=== PATIENT | female | born 1990 | race Caucasian/White ===

== ENCOUNTER 2016-05-13 17:38 | Emergency (ER) | payer BC, MEDICAID ==
[2016-05-13 18:59] VITALS: BP 115/60
--- NOTE | 2016-05-13 19:44 | UC ---
Abdominal Pain Female HPI - HPI Summary HPI Summary: ABOUT 2 EPISODES OF LOOSE STOOLS PER DAY FOR PAST 3 DAYS. THIS MORNING ATE A TUNA SUB AND AN HOUR LATER STARTED VOMITING. HAS VOMITED 9 TIMES SINCE ONSET. NO FEVER. NO ABDOMINAL PAIN OR CRAMPING. DENIES ANY URINARY SX. HAS DM AND STATES HER SUGARS ARE USUALLY AROUND 200. POC GLUCOSE HERE 198. - History of Current Complaint Chief Complaint: UCGI Stated Complaint: VOMITING Time Seen by Provider: 05/13/16 19:30 Hx Obtained From: Patient Hx Last Menstrual Period: Mar 2016 Onset/Duration: Gradual Onset, Lasting Days, Still Present Timing: Constant Severity Initially: Moderate Severity Currently: Moderate Pain Intensity: 0 Pain Scale Used: 0-10 Numeric Aggravating Factor(s): Food Associated Signs and Symptoms: Positive: Decreased Appetite, Nausea, Vomiting, Diarrhea. Negative: Fever, Dizzy, Back Pain, Constipation, Blood in Stool, Urinary Symptoms Allergies/Adverse Reactions: Allergies Allergy/AdvReac Type Severity Reaction Status Date / Time Sulfamethoxazole Allergy Severe Swelling Verified 05/13/16 19:00 w/Trimethoprim [From Bactrim] Askew-Josefa Flavor AdvReac Intermediate Vomiting Verified 05/13/16 19:00 Metformin AdvReac Intermediate Vomiting Verified 05/13/16 19:00 Sulfa Drugs AdvReac Unknown See Comment Verified 05/13/16 19:00 Losartan [From Cozaar] AdvReac Vomiting Verified 05/13/16 19:00 Home Medications: Home Medications ARIPiprazole TAB* [Abilify TAB*] 05/13/16 [History] Diazepam TAB(*) [Valium TAB(*)] 05/13/16 [History] Liraglutide [Victoza] 05/13/16 [History] Norethindrone/Eth Est NF [Junel (NF)] 05/13/16 [History] OXcarbazepine TAB(*) [Trileptal TAB(*)] 05/13/16 [History] Oxistat 05/13/16 [History] Oxycodone HCl [Oxycodone HCl 100 mg/5 ml] 05/13/16 [History] PMH/Surg Hx/FS Hx/Imm Hx Endocrine History Of: Reports: Diabetes Denies: Thyroid Disease Cardiovascular History Of: Denies: Cardiac Disorders, Hypertension, Pacemaker/ICD Respiratory History Of: Reports: Asthma Denies: COPD GI/ History Of: Denies: Gastroesophageal Reflux, Ulcer, Renal Disease Neurological History Of: Denies: CVA, Dementia, Seizures Psychological History Of: Reports: Anxiety, Depression, Schizophrenia Other History Of: Negative For: Anticoagulant Therapy - Surgical History Surgical History: Yes Surgery Procedure, Year, and Place: foot surgeries - Family History Known Family History: Positive: Hypertension, Diabetes Family History: No FHx of psychotic disorders. FHx of schizophrenia. FHx of mood disorders. FHx of bipolar disorders. Fhx of anxiety disorders. FHx of Depression. Fhx of alcohol abuse - Social History Alcohol Use: Occasionally Alcohol Amount: [id number] Substance Use Type: None, Prescribed Smoking Status (MU): Never Smoked Tobacco Have You Smoked in the Last Year: No Household Exposure Type: Cigarettes Review of Systems Constitutional: Fatigue Respiratory: Negative Cardiovascular: Negative Gastrointestinal: Vomiting, Diarrhea Genitourinary: Negative All Other Systems Reviewed And Are Negative: Yes Physical Exam Triage Information Reviewed: Yes Appearance: Well-Appearing, No Pain Distress, Well-Nourished, Obese Vital Signs: Initial Vital Signs Temp 96.9 F 05/13/16 18:54 Pulse 137 05/13/16 18:54 Resp 18 05/13/16 18:54 BP 115/60 05/13/16 18:54 Pulse Ox 99 05/13/16 18:54 Vital Signs Reviewed: Yes Eyes: Positive: Conjunctiva Clear ENT: Positive: Hearing grossly normal Neck: Positive: Supple Respiratory Exam: Normal Cardiovascular: Positive: Tachycardia Abdomen Description: Positive: Nontender, Soft. Negative: CVA Tenderness (R), CVA Tenderness (L), Distended, Guarding Bowel Sounds: Positive: Present Musculoskeletal: Positive: No Edema Neurological: Positive: Alert Psychological: Positive: Age Appropriate Behavior Skin: Negative: rashes Diagnostics - Laboratory Diagnostic Studies Completed/Ordered: POC GLUCOSE - 198. URINE DIP SP. GR. 1.035, 3+ LEUKS Re-Evaluation - Re-Evaluation First Eval Re-Evaluation Time: 21:00 - PT FEELS BETTER. READY TO GO HOME AFTER 600ML NS, 4MG ZOFRAN Change: Improved Abd Pain Female Course/Dx - Differential Dx/Diagnosis Provider Diagnoses: 1. UTI. 2. ACUTE NAUSEA/VOMITING. 3. HYPERGLYCEMIA Discharge - Discharge Plan Condition: Stable Disposition: HOME Prescriptions: Ciprofloxacin [Cipro] 5 ml PO BID #50 ml Ondansetron ODT TAB* [Zofran Odt TAB*] 4 mg PO Q6H PRN #20 tab.odt PRN Reason: Nausea/Vomiting Patient Education Materials: Urinary Tract Infection in Women (ED), Acute Nausea and Vomiting (ED), Diabetic Hyperglycemia (ED) Referrals: Marshall Simons MD [Primary Care Provider] - 2 Weeks Additional Instructions: YOUR UNCONTROLLED DIABETES PUTS YOU AT INCREASED RISK OF INFECTION. THIS MAY EXPLAIN WHY YOU HAVE FREQUENT URINARY INFECTIONS. WE WILL ALSO SEND YOUR URINE TO DETERMINE IF YOU HAVE AN ATYPICAL CAUSE OF YOUR INFECTION. START YOUR ABX TOMORROW. FOLLOW-UP WITH YOUR PCP TO DISCUSS TIGHTER GLYCEMIC CONTROL.
[2016-05-13] MEDS ORDERED: Ondansetron ODT TAB* 4 MG PO ONE ×2 (19:48→21:03)
[2016-05-13] MEDS ORDERED: NS 0.9% 1000 ML* 1,000 ML IV SCH (20:00)
[2016-05-16 15:53] LABS: Ureaplasma Source URINE; Ureaplasma parvum PCR Positive; Ureaplasma urealyticum PCR Negative
== END 2016-05-13 21:25 | disposition home or self-care (01) ==
LOC: UCEAST 17:38
DX: N39.0 Urinary tract infection, site not specified (principal); R11.2 Nausea with vomiting, unspecified; E11.65 Type 2 diabetes mellitus with hyperglycemia; Z32.02 Encounter for pregnancy test, result negative; Z88.2 Allergy status to sulfonamides; Z88.8 Allergy status to other drugs, medicaments and biological substances; Z77.22 Contact with and (suspected) exposure to environmental tobacco smoke (acute) (chronic)
CPT/HCPCS: 81002; 81025; 87077; 87086; 87798; 96360; 99213; A9270-GY; G0463

== ENCOUNTER 2016-11-15 19:06 | Emergency (ER) | payer BC, MEDICAID ==
[2016-11-15 19:12] VITALS: BP 120/84
== END 2016-11-15 20:41 | disposition left against medical advice (07) ==
LOC: ED 19:06
DX: F19.10 Other psychoactive substance abuse, uncomplicated (principal); Z53.21 Procedure and treatment not carried out due to patient leaving prior to being seen by health care provider
CPT/HCPCS: 99282

== ENCOUNTER 2017-05-04 16:05 | Emergency (ER) | payer BC, OTHER, MEDICAID ==
[2017-05-04 16:18] VITALS: BP 131/89
--- NOTE | 2017-05-04 16:40 | UC ---
Head Injury HPI - HPI Summary HPI Summary: Pt presents with head injury sustained earlier this afternoon. She tells me that about 1.5 hours ago she was leaving her house and slipped on "black ice". Her feet went out from underneath her and she landed on her buttocks - her head flung back and she hit the back of it on the ground. Unwitnessed. Says she was "pretty dazed" for around 30 seconds, but did not black out or lose consciousness. She was able to get up and drive to her Urgent care without difficulties. Currently she has some dizziness and mild pain in the back of her head. She also complains of sinus pain/pressure/congestion for the last 4 days. Denies fever, chills, SOB, chest pain, abdominal pain, n/v/d/c, vision changes, headache, or weakness. - History Of Current Complaint Chief Complaint: UCHeadInjury Stated Complaint: HEAD INJURY, AND DIZZINESS Time Seen by Provider: 05/04/17 16:32 Hx Obtained From: Patient Hx Last Menstrual Period: Mar 2016 ?: No Onset/Duration: Sudden Onset Severity Currently: Moderate Severity Initially: Moderate Pain Intensity: 6 Pain Scale Used: 0-10 Numeric - Allergies/Home Medications Allergies/Adverse Reactions: Allergies Allergy/AdvReac Type Severity Reaction Status Date / Time losartan [From Cozaar] Allergy Vomiting Verified 05/04/17 16:20 pregabalin [From Lyrica] Allergy Vomiting Verified 05/04/17 16:20 Sulfa (Sulfonamide Allergy Vomiting Verified 05/04/17 16:20 Antibiotics) sulfamethoxazole Allergy Vomiting Verified 05/04/17 16:20 [From Bactrim] trimethoprim [From Bactrim] Allergy Vomiting Verified 05/04/17 16:20 Home Medications: Home Medications Asenapine(NF) [Saphris(NF)] 5 mg PO DAILY 05/04/17 [History Confirmed 05/04/17] Doxepin HCl 75 mg PO BEDTIME 05/04/17 [History Confirmed 05/04/17] FLUoxetine* [Prozac*] 05/04/17 [History] Prazosin CAP* [Minipress CAP*] 2 mg PO DAILY 05/04/17 [History Confirmed ] busPIRone TAB* [Buspar TAB*] 10 mg PO BID 05/04/17 [History Confirmed 05/04/17] hydrOXYzine pamoate [Vistaril] 50 mg IM MONTHLY 05/04/17 [History Confirmed 03/09] PMH/Surg Hx/FS Hx/Imm Hx Previously Healthy: Yes Psychological History: Anxiety, Depression, Bipolar Disorder, Schizophrenia Other History Of: Negative For: Anticoagulant Therapy - Surgical History Surgical History: Yes Surgery Procedure, Year, and Place: foot surgeries - Family History Known Family History: Positive: None, Hypertension, Diabetes Family History: No FHx of psychotic disorders. FHx of schizophrenia. FHx of mood disorders. FHx of bipolar disorders. Fhx of anxiety disorders. FHx of Depression. Fhx of alcohol abuse - Social History Alcohol Use: None Alcohol Amount: [id number] Substance Use Type: None Smoking Status (MU): Light Every Day Tobacco Smoker Have You Smoked in the Last Year: No Household Exposure Type: Cigarettes Review of Systems Constitutional: Negative Skin: Negative Eyes: Negative ENT: Sinus Congestion, Sinus Pain/Tenderness Respiratory: Negative Cardiovascular: Negative Gastrointestinal: Negative Neurovascular: Negative Musculoskeletal: Negative Neurological: Other - Dizziness Psychological: Negative All Other Systems Reviewed And Are Negative: Yes Physical Exam Triage Information Reviewed: Yes Appearance: Well-Appearing, No Pain Distress, Well-Nourished Vital Signs: Initial Vital Signs Temp 99 F 05/04/17 16:12 Pulse 114 05/04/17 16:12 Resp 20 05/04/17 16:12 BP 131/89 05/04/17 16:12 Pulse Ox 100 05/04/17 16:12 Vital Signs Reviewed: Yes Eyes: Positive: Conjunctiva Clear, Other: - EOMI. PERRLA. Negative: Conjunctiva Inflamed, Discharge ENT: Positive: Hearing grossly normal, Pharynx normal, Nasal congestion, Nasal drainage, TMs normal, Sinus tenderness, Uvula midline. Negative: Pharyngeal erythema, TM bulging, TM dull, TM red, Tonsillar swelling, Tonsillar exudate, Hoarse voice Neck: Positive: Supple, No Lymphadenopathy, Other: - NTTP. FROM. Respiratory: Positive: Lungs clear, Normal breath sounds, No respiratory distress, No accessory muscle use Cardiovascular: Positive: RRR, No Murmur, Pulses Normal Musculoskeletal: Positive: Strength Intact - B/L UEs and LEs, ROM Intact - B/L UEs and LEs, No Edema Neurological: Positive: Alert, Other: - A&Ox3. 3 word recall, remote, recent memory, ability to follow 2-step directions, and attention intact. CN II XII grossly intact. Clvmhb-yi-pady are intact. Gait with normal base. Romberg: maintains balance, no pronator drift. Normal speech. No facial drooping. Psychological: Positive: Age Appropriate Behavior Skin: Positive: Other - No edema, abrasions, or ecchymosis at site of impact on head. No monique's sign.. Negative: rashes, significant lesion(s) Re-Evaluation - Re-Evaluation First Eval Re-Evaluation Time: 17:47 Change: Improved Comment: Still with mild dizziness. AAOx3. No new symptoms Head Injury Course/Dx - Course Course Of Treatment: Head CT: IMPRESSION: Normal CT of the brain. GCS 15. Sinusitis. Suspect contusion vs concussion due to recent fall. Advised rest, ice , and tylenol prn. Monitor for any red flag symptoms and go to ED if develops. - Differential Dx/Diagnosis Provider Diagnoses: Head trauma. Sinusitis. Dizziness Discharge - Discharge Plan Condition: Stable Disposition: HOME Prescriptions: Amoxicillin PO (*) [Amoxicillin 400 MG/5 ML SUSP*] 6 ml PO BID #120 ml Patient Education Materials: Sinusitis (ED), Concussion (ED), Head Injury (ED) Referrals: Marshall Simons MD [Primary Care Provider] - Additional Instructions: If you develop a fever, shortness of breath, chest pain, headache, increasing dizziness, vision changes, vomiting, new or worsening symptoms - please call your PCP or go to the ED. Your blood pressure was high at todays visit. Please see your primary provider within 4 weeks for recheck and re-evaluation.
[2017-05-04] MEDS ORDERED: Meclizine TAB* 12.5 MG PO ONE (17:20)
--- NOTE | 2017-05-04 17:41 | RAD ---
INDICATION: Dizziness, blurred vision and "small lump on head" after trauma to left side of head after a slip and fall injury COMPARISON: None. TECHNIQUE: Contiguous axial sections of the brain were obtained from the skull base to the vertex without contrast. FINDINGS: The ventricles, cisterns and sulci are within normal limits. The cole-white matter differentiation is adequately maintained and there is no sulcal effacement. No significant focal abnormality or mass effect is present. There is no evidence for intracranial hemorrhage. No significant focal osseous abnormality is present. The visualized portion of the paranasal sinuses appear clear. The mastoid air cells are well aerated bilaterally. IMPRESSION: Normal CT of the brain.
== END 2017-05-04 17:59 | disposition home or self-care (01) ==
LOC: UCEAST 16:05
DX: S09.90XA Unspecified injury of head, initial encounter (principal); W00.0XXA Fall on same level due to ice and snow, initial encounter; Y93.01 Activity, walking, marching and hiking; Y92.008 Other place in unspecified non-institutional (private) residence as the place of occurrence of the external cause; R42 Dizziness and giddiness; J32.9 Chronic sinusitis, unspecified; F41.9 Anxiety disorder, unspecified; F31.9 Bipolar disorder, unspecified; F20.9 Schizophrenia, unspecified; Z88.1 Allergy status to other antibiotic agents; Z88.2 Allergy status to sulfonamides; Z88.8 Allergy status to other drugs, medicaments and biological substances; F17.200 Nicotine dependence, unspecified, uncomplicated
CPT/HCPCS: 70450; 99212; A9270-GY; G0463

== ENCOUNTER 2017-08-14 06:48 | Emergency (ER) | payer BC, MEDICAID ==
[2017-08-14] MEDS ORDERED: Thiamine IV* 100 MG, Folic Acid IV* 1 MG, Multiple Vitamin IV ADULT* 10 ML in NS 0.9% 1... IV ONE (07:34)
[2017-08-14] MEDS ORDERED: Pantoprazole IV* 40 MG IV ONE (07:35)
--- NOTE | 2017-08-14 07:57 | ED ---
GI/ HPI - HPI Summary HPI Summary: 27-year-old female presents with chest and epigastric pain for the past couple days. She's been having epigastric pain. States has burning in her chest. has history of GERD. no SOB. no palpitations. She states she has not had appetite for a month and half. She states experiencing PTSD due to the of her friend. States she has been blaming herself and will not eat food for the past couple months. She has been drinking okay. She also admits to diarrhea. no blood in stool or dark tarry stool. admits to nausea and occasionally vomiting. admits to pain with urination. no abnormal vaginal discharge. She has not tried anything. She states the pain is worse when she tries to eat. No history of ulcers. No fevers. - History of Current Complaint Chief Complaint: EDGeneral Time Seen by Provider: 08/14/17 07:09 Stated Complaint: CHEST/ABD PAIN Hx Last Menstrual Period: Mar 2016 Pain Intensity: 8 - Allergy/Home Medications Allergies/Adverse Reactions: Allergies Allergy/AdvReac Type Severity Reaction Status Date / Time losartan [From Cozaar] Allergy Vomiting Verified 05/04/17 16:20 pregabalin [From Lyrica] Allergy Vomiting Verified 05/04/17 16:20 Sulfa (Sulfonamide Allergy Vomiting Verified 05/04/17 16:20 Antibiotics) sulfamethoxazole Allergy Vomiting Verified 05/04/17 16:20 [From Bactrim] trimethoprim [From Bactrim] Allergy Vomiting Verified 05/04/17 16:20 PMH/Surg Hx/FS Hx/Imm Hx Endocrine/Hematology History: Reports: Hx Diabetes - TYPE 2, W/ INSULIN Denies: Hx Anticoagulant Therapy, Hx Thyroid Disease, Other Endocrine/ Hematological Disorders Cardiovascular History: Denies: Hx Hypertension, Hx Pacemaker/ICD, Other Cardiovascular Problems/ Disorders Respiratory History: Reports: Hx Asthma Denies: Hx Chronic Obstructive Pulmonary Disease (COPD), Other Respiratory Problems/Disorders GI History: Denies: Hx Ulcer, Other GI Disorders History: Denies: Hx Renal Disease, Other Problems/Disorders Musculoskeletal History: Reports: Other Musculoskeletal History - NUMBNESS/ TINGLING/PAIN IN EXTREMITIES Sensory History: Reports: Hx Contacts or Glasses Denies: Other Sensory Impairments Opthamlomology History: Reports: Hx Contacts or Glasses Denies: Other Sensory Impairments Neurological History: Denies: Hx Dementia, Hx Seizures, Other Neuro Impairments/Disorders Psychiatric History: Reports: Hx Anxiety, Hx Attention Deficit Hyperactivity Disorder, Hx Depression, Hx Post Traumatic Stress Disorder, Hx Inpatient Treatment, Hx Community Mental Health Tx, Hx Schizophrenia Denies: Hx Eating Disorder, Hx of Violent Episodes Against Others, Hx Substance Abuse, Other Psychiatric Issues/Disorders - Surgical History Surgery Procedure, Year, and Place: foot surgeries Infectious Disease History: No Infectious Disease History: Denies: Hx Clostridium Difficile, Hx Hepatitis, Hx Human Immunodeficiency Virus (HIV), Hx of Known/Suspected MRSA, Hx Shingles, Hx Tuberculosis, Hx Known/ Suspected VRE, Hx Known/Suspected VRSA, History Other Infectious Disease, Traveled Outside the [place] in Last 30 Days - Family History Known Family History: Positive: None, Hypertension, Diabetes Family History: No FHx of psychotic disorders. FHx of schizophrenia. FHx of mood disorders. FHx of bipolar disorders. Fhx of anxiety disorders. FHx of Depression. Fhx of alcohol abuse - Social History Alcohol Use: None Alcohol Amount: [id number] Substance Use Type: Reports: None Hx Tobacco Use: No Smoking Status (MU): Light Every Day Tobacco Smoker Have You Smoked in the Last Year: No Review of Systems Negative: Fever Positive: Chest Pain Negative: Shortness Of Breath, Cough Positive: Abdominal Pain, Vomiting, Diarrhea, Nausea All Other Systems Reviewed And Are Negative: Yes Physical Exam Triage Information Reviewed: Yes Vital Signs On Initial Exam: Initial Vitals Temp Pulse Resp BP Pulse Ox 97 F 97 20 153/105 100 08/14/17 06:49 08/14/17 06:49 08/14/17 06:49 08/14/17 06:49 08/14/17 06:49 Vital Signs Reviewed: Yes Appearance: Positive: Well-Appearing Skin: Positive: Warm, Dry Head/Face: Positive: Normal Head/Face Inspection Eyes: Positive: Normal, Conjunctiva Clear ENT: Positive: Pharynx normal Respiratory/Lung Sounds: Positive: Clear to Auscultation, Breath Sounds Present Cardiovascular: Positive: Normal, RRR Abdomen Description: Positive: Soft, Other: - tenderness epigastrium Bowel Sounds: Positive: Present Musculoskeletal: Positive: Normal Neurological: Positive: Normal Psychiatric: Positive: Normal Diagnostics - Vital Signs Vital Signs Temp Pulse Resp BP Pulse Ox 08/14/17 07:06 97 143/97 99 08/14/17 07:05 99 99 08/14/17 06:49 97 F 97 20 153/105 100 - Laboratory Result Diagrams: 08/14/17 07:58 08/14/17 07:58 Lab Statement: Any lab studies that have been ordered have been reviewed, and results considered in the medical decision making process. - Radiology chest Xray Interpretation: No Acute Changes Radiology Interpretation Completed By: Radiologist - Ultrasound No standard instances Ultrasound Interpretation: No Acute Changes Ultrasound Interpretation Completed By: Radiologist - EKG No standard instances Cardiac Rate: NL EKG Rhythm: Sinus Rhythm ST Segment: Normal EKG Interpretation: sinus rhythm, no ST elevation EKG Comparison: No Significant Change GIGU Course/Dx - Course Assessment/Plan: 27-year-old female presents with chest and epigastric pain for the past couple days. She's been having epigastric pain. States has burning in her chest. has history of GERD. no SOB. no palpitations. She states she has not had appetite for a month and half. She states experiencing PTSD due to the of her friend. States she has been blaming herself and will not eat food for the past couple months. She has been drinking okay. She also admits to diarrhea. no blood in stool or dark tarry stool. admits to nausea and occasionally vomiting. admits to pain with urination. no abnormal vaginal discharge. She has not tried anything. She states the pain is worse when she tries to eat. No history of ulcers. No fevers. On exam has reproducible chest pain. Tenderness epigastric. Chest x-ray normal. EKG normal. Gallbladder ultrasound normal. Prescribe Protonix and feeling better. As within normal limits. Urine shows UTI. We'll prescribe Augmentin for such. Patient will only take liquid medication. Patient has follow up with psychiatry today about not eating. Patient understands agrees with plan. - Diagnoses Differential Diagnoses - Female: Gall Bladder Disease, Gastritis, Urinary Tract Infection, Vomiting Provider Diagnoses: Chest pain, Epigastric pain, UTI (urinary tract infection) Discharge - Sign-Out/Discharge Documenting (check all that apply): Discharge/Admit/Transfer - Discharge Plan Condition: Good Disposition: HOME Prescriptions: Amoxicillin/Clavulanate SUSP* [Augmentin SUSP*] 600 mg PO BID #1 bottle Lansoprazole SOLUTAB* [Prevacid SOLUTAB*] 15 mg PO DAILY #14 tab.odt Patient Education Materials: Urinary Tract Infection in Women (ED), Epigastric Pain (ED) Referrals: Marshall Simons MD [Primary Care Provider] - Additional Instructions: Take lansoprazole once a day either morning or night, do not take any other medication before or after an hour of taking such Try to eat small snacks throughout the day drink plenty of fluids Take augmentin 5ml twice a day for 5 days, first dose given in ED Follow up with primary within 5 days Return to ED if develop any new or worsening symptoms - Billing Disposition and Condition Condition: GOOD Disposition: HOME
[2017-08-14 08:24] LABS: ABS Basophils 0 10^3/ul (0-0.2); ABS Eosinophils 0.1 10^3/ul (0-0.6); ABS Lymphocytes 1.4 10^3/ul (1.0-4.8); ABS Monocytes 0.4 10^3/ul (0-0.8); ABS Neutrophils 5.6 10^3/ul (1.5-7.7); ABS Nucleated RBC 0 10^3/ul; Eosinophil % 1.4 % (0-6); Hematocrit 37 % (35-47); Hemoglobin 12.4 g/dl (12.0-16.0); Lymphocyte % 18.6 % (25-47); Mean Corpuscular HGB Conc 33 g/dl (31-36); Mean Corpuscular Hemoglobin 27 pg (27-31); Mean Corpuscular Volume 82 fL (80-97); Mean Platelet Volume 6.9 um3 (7.4-10.4); Nucleated Red Blood Cells % 0; Platelet Count 289 10^3/ul (150-450); Red Blood Count 4.56 10^6/ul (4.0-5.4); Red Cell Distribution Width 12 % (10.5-15); White Blood Count 7.6 10^3/ul (3.5-10.8)
--- NOTE | 2017-08-14 08:29 | RAD ---
HISTORY: Chest pain COMPARISONS: January 29, 2016 VIEWS: 4: Frontal dual-energy and lateral views of the chest. FINDINGS: CARDIOMEDIASTINAL SILHOUETTE: The cardiomediastinal silhouette is normal. LISA: The lisa are normal. PLEURA: The costophrenic angles are sharp. No pleural abnormalities are noted. LUNG PARENCHYMA: The lungs are clear. ABDOMEN: The upper abdomen is clear. There is no subphrenic gas. BONES AND SOFT TISSUES: No bone or soft tissue abnormalities are noted. OTHER: None. IMPRESSION: NO ACTIVE CARDIOPULMONARY DISEASE.
--- NOTE | 2017-08-14 08:47 | RAD ---
Indication: Epigastric pain. Real-time sonography of the right upper quadrant was performed. The liver is enlarged measuring 21.6 cm in length. There are no focal lesions or intrahepatic duct dilatation is noted. The gallbladder demonstrates no gallstones, pericholecystic fluid or wall thickening. The common duct measures 1.8 mm. The right kidney measures 12.0 x 4.3 x 6.4 cm with no hydronephrosis. The pancreas demonstrates no mass or pancreatic duct dilatation. Aorta and inferior vena cava are unremarkable. IMPRESSION: HEPATOMEGALY. NO EVIDENCE OF CHOLELITHIASIS OR BILIARY DUCT DILATATION IS NOTED.
[2017-08-14] MEDS ORDERED: Potassium Chloride LIQUID* 20 MEQ PACKET PO ONE (09:00)
[2017-08-14 09:26] LABS: Urine Appearance Cloudy; Urine Blood 2+ (Negative); Urine Color Yellow; Urine Ketones Negative (Negative); Urine Protein Negative (Negative); Urine Specific Gravity 1.017 (1.010-1.030); Urine Urobilinogen Negative (Negative)
[2017-08-14] MEDS ORDERED: Amoxicillin/Clavulanate SUSP* 400 MG/5 ML BTL PO ONE (09:43)
[2017-08-14 10:03] VITALS: BP 142/96
== END 2017-08-14 10:17 | disposition home or self-care (01) ==
LOC: ED 06:48
DX: R07.9 Chest pain, unspecified (principal); R10.13 Epigastric pain; N39.0 Urinary tract infection, site not specified; Z72.0 Tobacco use; E11.9 Type 2 diabetes mellitus without complications; Z79.4 Long term (current) use of insulin; Z88.2 Allergy status to sulfonamides; K21.9 Gastro-esophageal reflux disease without esophagitis
CPT/HCPCS: 36415; 71046; 76705; 80053; 81003; 81015; 83690; 83735; 84484; 85025; 85379; 86141; 87086; 93005; 96360; 96374; 99284; A9270-GY; J3411

== ENCOUNTER 2017-10-30 14:45 | Emergency (ER) | payer BC, MEDICAID ==
[2017-10-30] MEDS ORDERED: Ondansetron INJ* 2 MG/ML VIAL IV ONE (16:30)
[2017-10-30] MEDS ORDERED: NS 0.9% 1000 ML* 1,000 ML IV ONE (16:30)
--- OUTSIDE RECORDS SUMMARY | 2017-10-30 16:41 | XMS REPORT ---
:1990 External Reference #:[id number] Author Organization [facility] Address [address] [place] [address] [place] [address] Phone [phone] Care Team Providers Name Role Phone Marshall Simons MD Primary Care Physician Unavailable Payers Type Date Identification Numbers Payment Provider Subscriber Commercial Policy Number: [id number] [facility] Soy [employer]gett PayID: [id number] [address] [place] [address] [facility] Policy Number: [id number] Medicaid Risa Leggett PayID: [id number] [address] [place] [address] Problems Description No Information Family History Date Family Member(s) Problem(s) Comments General Heart Disease General Hypertension General Diabetes Father Diabetes Mother Diabetes Social History Type Date Description Comments Cigarette Use Former Cigarette Smoker ETOH Use Denies alcohol use Recreational Drug Use Denies Drug Use Smoking Light tobacco smoker (10 or fewer cigarettes/day) Allergies, Adverse Reactions, Alerts Date Description Reaction Status Severity Comments 10/22/2017 Metformin active 10/22/2017 Cozaar active 10/22/2017 Sulfa active 10/22/2017 Askew Allergenic Extract active Medications Medication Date Status Form Strength Qnty SIG Indications Ordering Provider Tresiba / Active Solution 200Unit/ML As directed Unknown Flextouch 0000 Pen-Inject Albuterol / Active Nebulizer (2.5mg/3ML 1 vial via Unknown Sulfate 0000 ) 0.083% nebulizer 4 times daily as needed Pulmicort / Active Suspension 0.5mg/2ML add 1 Unknown 0000 respule to saline (pt will supply own) as directed and irrigate sinuses twice daily Victoza / Active Solution 1.2mg As directed Unknown 0000 Pen-Inject Suboxone / Active Film 24mg every day Unknown Nicolle 28 / Active Tablets 3-0.03mg 1 tab Unknown 0000 everyday Ibuprofen / Active Capsules 200mg as needed Unknown 0000 Infants 01/13/ Hx Suspension 50mg/1.25M 500ml 15 ml tid Mike Ibuprofen 2010 - prn pain Jack, 10/20/ Raulito 2017 Gabapentin / Hx Capsules 100mg 1 po tid Unknown 0000 - 2017 Buspirone / Hx Tablets 10mg 1 by mouth Unknown HCL 0000 - twice a day 2017 June Fe / Hx Tablets 1-20mg-mcg 1 by mouth Unknown 04/11 0000 - every day 2017 Vital Signs Date Vital Result Comment 10/22/2017 Height 66 inches 5'6" Weight 217.00 lb Heart Rate 86 /min BP Systolic 138 mmHg BP Diastolic 102 mmHg BMI (Body Mass Index) 35.0 kg/m2 Results Description No Information Procedures Description No Information Encounters Type Date Location Provider CPT E/M Dx Office Visit 10/22/2017 [facility] John Post, [address] E11.40 8:30a [facility] Office Visit 01/13/2011 [facility] Mike Santiago M.D. 29775 923.00 10:00a Of [place] 923.21 Plan of Care Future Appointment(s):02/22/2018 8:15 am - John Post M.D. at [facility]10/22/2017 - John Post M.D.E11.40 Type 2 diabetes mellitus with diabetic neuropathy, unspFollow up:Follow up in 4 months Please send copies to: 1. Dr. Marshall Simons 2. Dr. Renata Brand at [facility] 3. Dr. Julio Zhao in [place]
--- NOTE | 2017-10-30 16:50 | ED ---
Abdominal Pain/Female - HPI Summary HPI Summary: This is scribe Andrew Aragon documenting for attending Dr. Reddy Cabezas This patient is a 27 year old F presenting to [facility] accompanied by her friend with a chief complaint of weakness since 10/27/17. Pt refuses to eat or drink as a way of punishing (her)self because she is angry at things that are happening in (her) life. Pt now wants to eat but cannot due to N/V. She endorses drinking only 8-10 oz a day, eating only 600-700 calories/day for the past month or month and a half. Pt endorses 11 times/day diarrhea; clear without blood or mucous. Pt recently finished an Abx regimen 2 days ago. Pt endorses abd pain, cramping, flank pain over kidneys. Pt notes that she is able to urinate and urinates a normal volume. LKMP 6 weeks ago get it every 7 weeks due to PCOS. PMHx DM II, ITP, schizophrenia, PCOS, depression, IBS. Pt uses Victoza. Pt smokes 3-4 cigarettes a day, no drinking or substance abuse. FHx HLD, DM, HTN, CAD, breast cancer. I, Dr. Blakely personally performed the services described in this documentation as scribed in my presence and it is both accurate and complete. - History of Current Complaint Chief Complaint: EDWeakness Stated Complaint: NOT EATING/WEAK Time Seen by Provider: 10/30/17 16:20 Hx Obtained From: Patient Hx Last Menstrual Period: 10/16/17 ?: No Onset/Duration: Gradual Onset, Lasting Days, Still Present Timing: Constant Severity Initially: Moderate Severity Currently: Moderate Pain Intensity: 7 Pain Scale Used: 0-10 Numeric Location: Diffuse, Flank Radiates: Yes Radiates to: Flank Character: Cramping Aggravating Factor(s): Food Alleviating Factor(s): Nothing Associated Signs and Symptoms: Positive: Back Pain, Decreased Appetite, Nausea, Vomiting, Diarrhea. Negative: Fever, Blood in Stool Allergies/Adverse Reactions: Allergies Allergy/AdvReac Type Severity Reaction Status Date / Time losartan [From Cozaar] Allergy Vomiting Verified 10/30/17 15:06 metformin Allergy Rash Verified 10/30/17 15:06 pregabalin [From Lyrica] Allergy Vomiting Verified 10/30/17 15:06 Sulfa (Sulfonamide Allergy Vomiting Verified 10/30/17 15:06 Antibiotics) sulfamethoxazole Allergy Vomiting Verified 10/30/17 15:06 [From Bactrim] trimethoprim [From Bactrim] Allergy Vomiting Verified 10/30/17 15:06 PMH/Surg Hx/FS Hx/Imm Hx Endocrine/Hematology History: Reports: Hx Blood Disorders - ITP, Hx Diabetes - TYPE 2, W/ INSULIN Denies: Hx Anticoagulant Therapy, Hx Thyroid Disease, Other Endocrine/ Hematological Disorders Cardiovascular History: Denies: Hx Hypertension, Hx Pacemaker/ICD, Other Cardiovascular Problems/ Disorders Respiratory History: Reports: Hx Asthma Denies: Hx Chronic Obstructive Pulmonary Disease (COPD), Other Respiratory Problems/Disorders GI History: Reports: Hx Irritable Bowel Denies: Hx Ulcer, Other GI Disorders History: Reports: Other Problems/Disorders - PCOS Denies: Hx Renal Disease Musculoskeletal History: Reports: Other Musculoskeletal History - NUMBNESS/ TINGLING/PAIN IN EXTREMITIES Sensory History: Reports: Hx Contacts or Glasses Denies: Hx Legally Blind, Hx Deafness, Other Sensory Impairments Opthamlomology History: Reports: Hx Contacts or Glasses Denies: Hx Legally Blind, Other Sensory Impairments EENT History: Denies: Hx Deafness Neurological History: Denies: Hx Dementia, Hx Seizures, Other Neuro Impairments/Disorders Psychiatric History: Reports: Hx Anxiety, Hx Attention Deficit Hyperactivity Disorder, Hx Depression, Hx Post Traumatic Stress Disorder, Hx Inpatient Treatment, Hx Community Mental Health Tx, Hx Schizophrenia Denies: Hx Eating Disorder, Hx of Violent Episodes Against Others, Hx Substance Abuse, Other Psychiatric Issues/Disorders - Surgical History Surgery Procedure, Year, and Place: foot surgeries Infectious Disease History: No Infectious Disease History: Denies: Hx Clostridium Difficile, Hx Hepatitis, Hx Human Immunodeficiency Virus (HIV), Hx of Known/Suspected MRSA, Hx Shingles, Hx Tuberculosis, Hx Known/ Suspected VRE, Hx Known/Suspected VRSA, History Other Infectious Disease, Traveled Outside the [place] in Last 30 Days - Family History Known Family History: Positive: Hypertension, Diabetes Family History: FHx of schizophrenia. FHx of mood disorders. FHx of bipolar disorders. Fhx of anxiety disorders. FHx of Depression. Fhx of alcohol abuse - Social History Lives: Dormitory/Roommates Alcohol Use: None Alcohol Amount: [id number] Substance Use Type: Reports: None Hx Tobacco Use: Yes Smoking Status (MU): Light Every Day Tobacco Smoker - 3-4 cigarettes/day Type: Cigarettes Have You Smoked in the Last Year: No Review of Systems Negative: Fever Positive: Abdominal Pain, Vomiting, Diarrhea, Nausea. Negative: Other - hematochezia Positive: flank pain Positive: Weakness All Other Systems Reviewed And Are Negative: Yes Physical Exam - Summary Physical Exam Summary: VITAL SIGNS: Reviewed. GENERAL: Patient is a well-developed and nourished female who is lying comfortable in the stretcher. Patient is not in any acute respiratory distress. HEAD AND FACE: No signs of trauma. No ecchymosis, hematomas or skull depressions. No sinus tenderness. EYES: PERRLA, EOMI x 2, No injected conjunctiva, no nystagmus. EARS: Hearing grossly intact. Ear canals and tympanic membranes are within normal limits. MOUTH: Dry mouth. NECK: Supple, trachea is midline, no adenopathy, no JVD, no carotid bruit, no c- spine tenderness, neck with full ROM. CHEST: Symmetric, no tenderness at palpation LUNGS: Clear to auscultation bilaterally. No wheezing or crackles. CVS: Regular rate and rhythm, S1 and S2 present, no murmurs or gallops appreciated. ABDOMEN: Soft, non-tender. No signs of distention. No rebound no guarding, and no masses palpated. Bowel sounds are normal. EXTREMITIES: FROM in all major joints, no edema, no cyanosis or clubbing. NEURO: Alert and oriented x 3. No acute neurological deficits. Speech is normal and follows commands. SKIN: Dry and warm Triage Information Reviewed: Yes Vital Signs On Initial Exam: Initial Vitals Temp Pulse Resp BP Pulse Ox 98.5 F 107 20 132/91 97 10/30/17 15:00 10/30/17 15:00 10/30/17 15:00 10/30/17 15:00 10/30/17 15:00 Vital Signs Reviewed: Yes Diagnostics - Vital Signs Vital Signs Temp Pulse Resp BP Pulse Ox 10/30/17 16:14 104 126/81 100 10/30/17 15:00 98.5 F 107 20 132/91 97 - Laboratory Result Diagrams: 10/30/17 17:09 10/30/17 17:09 Lab Statement: Any lab studies that have been ordered have been reviewed, and results considered in the medical decision making process. - Radiology Abd XR Xray Interpretation: No Acute Changes Radiology Interpretation Completed By: Radiologist - No abdominal pelvic pathologic process evident. Dr. Blakely has reviewed this report. Re-Evaluation - Re-Evaluation First Eval Re-Evaluation Time: 18:54 Change: Improved Comment: Pt is much better, eating and drinking without N/V. Abdominal Pain Fem Course/Dx - Course Course Of Treatment: This patient is a 27-year-old female who presents to the emergency department with a chief complaint of having nausea and vomiting and decreased appetite. Patient also reports that she is having watery diarrhea. Test results without any significant abnormality except for glucose of 139, alkaline phosphatase of 108 CRP of 15. Urinalysis negative for UTI. abdomen x- ray shows no abdominal pelvic pathology process evident. In the ED course the case was given IV fluids for rehydration and Zofran for nausea vomiting. After these medications the patient feels better, she is eating and drinking without any nausea or vomiting. I discussed all the findings and test results with the patient. Patient was instructed to return to the emergency room immediately if any of the symptoms return or worsens. Plan of care was discussed with the patient and understands and agrees. All questions were answered at patient satisfaction. There were no further complaints or concerns. Lung exam before discharge: CTA B/L. Good air exchange. No wheezing or crackles heard. CVS: S1 and S2 present. No murmurs appreciated. Patient is alert and oriented x 3. Patient is hemodynamically stable. Patient will be discharged home with follow up PCP in the next 2-3 days - Diagnoses Provider Diagnoses: Weakness, Nausea & vomiting Discharge - Sign-Out/Discharge Documenting (check all that apply): Patient Departure - discharge - Discharge Plan Condition: Stable Disposition: HOME Prescriptions: Ondansetron ODT TAB* [Zofran 4 MG Odt TAB*] 4 mg PO Q8H PRN #10 tab.odt PRN Reason: Nausea Patient Education Materials: Acute Nausea and Vomiting (ED), Weakness (ED) Referrals: Marshall Simons MD [Primary Care Provider] - Additional Instructions: Return to the emergency department for any new or worsening symptoms. Attestations User Type: Provider - I, Dr. Blakely personally performed the services described in this documentation as scribed in my presence and it is both accurate and complete.
[2017-10-30 17:20] LABS: ABS Basophils 0.1 10^3/ul (0-0.2); ABS Eosinophils 0 10^3/ul (0-0.6); ABS Lymphocytes 1.6 10^3/ul (1.0-4.8); ABS Monocytes 0.5 10^3/ul (0-0.8); ABS Neutrophils 7.7 10^3/ul (1.5-7.7); ABS Nucleated RBC 0 10^3/ul; Eosinophil % 0.3 % (0-6); Hematocrit 43 % (35-47); Hemoglobin 14.7 g/dl (12.0-16.0); Lymphocyte % 16.4 % (25-47); Mean Corpuscular HGB Conc 34 g/dl (31-36); Mean Corpuscular Hemoglobin 27 pg (27-31); Mean Corpuscular Volume 81 fL (80-97); Mean Platelet Volume 7.3 um3 (7.4-10.4); Nucleated Red Blood Cells % 0.1; Platelet Count 309 10^3/ul (150-450); Red Blood Count 5.38 10^6/ul (4.00-5.40); Red Cell Distribution Width 13 % (10.5-15); White Blood Count 9.9 10^3/ul (3.5-10.8)
[2017-10-30 17:32] LABS: Urine Appearance Clear; Urine Blood Negative (Negative); Urine Color Yellow; Urine Ketones Negative (Negative); Urine Protein Negative (Negative); Urine Specific Gravity 1.016 (1.010-1.030); Urine Urobilinogen Negative (Negative)
[2017-10-30 17:41] LABS: EGFR Non-African American 73.1 (>60)
--- NOTE | 2017-10-30 17:50 | RAD ---
Indication: Nausea, vomiting, diarrhea. Comparison: August 14, 2017 RIGHT upper quadrant ultrasound. Technique: Supine and upright views of the abdomen. Report: Negative for free air beneath the diaphragm. Normal bowel gas pattern. Small volume of stool present in the RIGHT colon. Negative for suspicious calcifications or mass effect. Unremarkable soft tissue contours. Clear lung bases. IMPRESSION: #. No abdominal pelvic pathologic process evident.
[2017-10-30 19:57] VITALS: BP 148/102
== END 2017-10-30 19:59 | disposition home or self-care (01) ==
LOC: ED 14:45
DX: R53.1 Weakness (principal); R11.2 Nausea with vomiting, unspecified; F17.210 Nicotine dependence, cigarettes, uncomplicated; E78.5 Hyperlipidemia, unspecified; E11.9 Type 2 diabetes mellitus without complications; F20.9 Schizophrenia, unspecified; K58.9 Irritable bowel syndrome, unspecified; F32.9 Major depressive disorder, single episode, unspecified; D69.3 Immune thrombocytopenic purpura; Z79.4 Long term (current) use of insulin
CPT/HCPCS: 36415; 74019; 80053; 81003; 82150; 83605; 83690; 83735; 85025; 86140; 96361; 96374; 99283; J2405

== ENCOUNTER 2018-04-07 12:16 | Inpatient (IN) | payer BC, OTHER, MEDICAID ==
[2018-04-07] MEDS ORDERED: Nicotine Inhaler* 10 MG AMP INH PRN (12:22)
--- OUTSIDE RECORDS SUMMARY | 2018-04-07 12:25 | XMS REPORT | Continuity of Care Document ---
:1990 External Reference #:[id number] Author Name Christel Barraza PA-C Address [address] [place] [address] Care Team Providers Name Role Phone Abdirashid Brenner MD Care Team Information Senior It Specialist Unavailable Marshall Simons M.D. Primary Care Physician Unavailable Payers Type Date Identification Numbers Payment Provider Subscriber Effective: Policy Number: [id number] [employer] Bella Betsey 2018 Health Plan PayID: [id number] [address] [place] [address] Policy Number: [id number] Medicaid/I Risa Leggett Group Name: 1 2 Insurance Primary PayID: [id number] [address] [place] [address] Advance Directives Description No Information Available Problems Date Description Provider Status Onset: 04/24/2011 Sensorineural hearing loss Hammad Foster MD Active Family History Date Family Member(s) Problem(s) Comments General Allergies General Asthma General Diabetes General Heart Attack General Heart Disease General Thyroid Disease Social History Type Date Description Comments Sex Unknown Occupation challenge Tobacco Use Start: Unknown Current Cigarette Smoker 1-5 Cigarettes Daily Tobacco Use Start: Unknown Never Smoked Cigars Tobacco Use Start: Unknown Never Smoked A Pipe Smokeless Tobacco Never Used Smokeless Tobacco ETOH Use Denies alcohol use Tobacco Use Start: Unknown Patient is a current smoker, smokes every day Smoking Status Reviewed: 03/10/18 Patient is a current smoker, smokes every day Allergies, Adverse Reactions, Alerts Date Description Reaction Status Severity Comments 04/23/2011 Cherries Active 04/23/2011 Metformin Active 02/19/2018 sulfa Active Medications Medication Date Status Form Strength Qnty SIG Indications Ordering Provider Mupirocin Active Cream 2% 30gm apply to Hammad Richards both nasal obdulia Alberto MD twice a day for 21 days Prozac 0 Active Capsules 20mg as directed Unknown 000 Drospirenone- Active Tablets 3-0.02mg 1 tab daily Unknown Ethinyl 000 Estradiol Ambien Active Tablets 10mg 1 by mouth Unknown 000 as needed at bedtime Victoza Active Solution 18mg/3ML as directed Unknown 000 Pen-Inject Zyrtec Active Capsules 10mg 1 by mouth Unknown Allergy 000 every night at bedtime Elocon Hx Cream 0.1% 15gm apply to Hammad Harper - dry areas E. Cristian, of ears 018 twice daily for 10 days. Abilify 0 Hx Unknown 000 - 018 Cozaar 0 Hx Unknown 000 - 018 Effexor XR 0 Hx Unknown 000 - 018 Seroquel 0 Hx Unknown 000 - 018 Ritalin 00/0 Hx Unknown 000 - 018 Cogentin 0 Hx Solution Unknown 000 - 018 Haldol /0 Hx Unknown 000 - 018 Prevacid 0 Hx Unknown 000 - 018 Synthroid 00/0 Hx Unknown 000 - 018 Immunizations Description No Information Available Vital Signs Date Vital Result Comment 02/19/2018 9:38am Weight 207.00 lb Weight 93.895 kg Height 66.5 inches 5'6.50" Height in cm's 168.9 cm BMI (Body Mass Index) 32.9 kg/m2 04/23/2011 2:46pm Weight 287.00 lb Weight 130.183 kg Height 66.50 inches 5'6.50" Height in cm's 168.9 cm BMI (Body Mass Index) 45.6 kg/m2 Results Description No Information Available Procedures Date Code Description Status 05/14/2011 54308 Oscillating Tracking Test W/Recor Completed 05/14/2011 67515 Optokinetic Nystagmus Test Bidir Completed 05/14/2011 25967 Caloric Vestibular - Recorded Completed 05/14/2011 54254 Positional Nystagmus - Recorded Completed 05/14/2011 38900 Spontaneous Nystagmus - Recorded Completed 04/23/2011 20088 Tympanometry Completed 04/23/2011 01315 Comprehensive Audiogram Completed Encounters Type Date Location Provider Dx Diagnosis Office Visit 03/10/2018 [place] Hair Wilde31.0 Chronic rhinitis 9:15a 03/23/07 PA-C Office Visit 02/19/2018 [place] Hammad Rice J31.0 Chronic rhinitis 9:45a 03/23/07 MD Cristian Office Visit 04/23/2011 [place] Hammad Rice 389.10 Hearing Loss, 2:00p 03/23/07 MD Cristian Sensorineural/Unsp ecified 388.31 Tinnitus, Subjective 386.10 Vertigo / Unspecified Plan of Treatment No Information Available
--- NOTE | 2018-04-07 12:28 | ED ---
Psychiatric Complaint - HPI Summary HPI Summary: A 27 y/o female brought in by ambulance presents to the ED c/o hearing voices and increased HI. As per EMS, patient increased her doses of her medication, however, she started hearing voices and has increased HI. Patient does not have any SI, however, the voices are getting severe. EMS noted that the patient extremely cooperative and nice. According to the patient, she would like to talk to mental health. Patient is standing in the room, however, is cooperative and answers all ER MD questions. Patient stated that she has a history of DM, but no HBP. Patient takes Victoza for her DM. PMHx of foot surgery for her warts in the 2nd grade. Patient is allergic to several medications. Patient's DM is well controlled. Patient does not like needles. Patient requested a Xanax (1 mg) as she usually takes it twice a day and would like one now because she is scared. Patient also requested some food because she is hungry. Patient reports no other symptoms or pain at this time. Home Medications Medication Instructions Recorded Confirmed Type Liraglutide [Victoza 3-Pato] 1.8 mg DAILY 05/13/16 05/04/17 History Norethindrone/Eth Est 1.08/19NF 1 tab PO DAILY 05/13/16 05/04/17 History [Junel .08/19 (NF)] Insulin Degludec [Tresiba 38 unit SC DAILY 07/16/16 05/04/17 History Flextouch U-100] ARIPiprazole TAB* [Abilify 2 MG 2 mg PO DAILY 09/18/16 05/04/17 History TAB*] Amoxicillin PO (*) [Amoxicillin 6 ml PO BID #120 ml 05/04/17 Rx 400 MG/5 ML SUSP*] Asenapine(NF) [Saphris(NF)] 5 mg PO DAILY 05/04/17 05/04/17 History Doxepin HCl 75 mg PO BEDTIME 05/04/17 05/04/17 History FLUoxetine* [Prozac*] 05/04/17 History Prazosin CAP* [Minipress CAP*] 2 mg PO DAILY 05/04/17 05/04/17 History busPIRone TAB* [Buspar TAB*] 10 mg PO BID 02/12/18 02/12/18 History hydrOXYzine pamoate [Vistaril] 50 mg IM MONTHLY 05/04/17 05/04/17 History Amoxicillin/Clavulanate SUSP* 600 mg PO BID #1 bottle 08/14/17 Rx [Augmentin SUSP*] Lansoprazole SOLUTAB* [Prevacid 15 mg PO DAILY #14 tab.odt 08/14/17 Rx SOLUTAB*] Ondansetron ODT TAB* [Zofran 4 MG 4 mg PO Q8H PRN #10 tab.odt 10/30/17 Rx Odt TAB*] - History Of Current Complaint Time Seen by Provider: 04/07/18 12:18 Hx Obtained From: Patient, EMS - GAVE SUMMARY Hx Last Menstrual Period: 10/16/17 Onset/Duration: Sudden Onset, Still Present Timing: Constant Severity Currently: None Character: Fearful Aggravating Factor(s): Nothing Alleviating Factor(s): Nothing Associated Signs And Symptoms: Positive: Negative Related History: Positive For: Prior Psychiatric Issues Has Homicidal: Reports: Thoughts - Allergies/Home Medications Allergies/Adverse Reactions: Allergies Allergy/AdvReac Type Severity Reaction Status Date / Time losartan [From Cozaar] Allergy Vomiting Verified 04/07/18 12:30 metformin Allergy Rash Verified 04/07/18 12:30 pregabalin [From Lyrica] Allergy Vomiting Verified 04/07/18 12:30 Sulfa (Sulfonamide Allergy Vomiting Verified 04/07/18 12:30 Antibiotics) sulfamethoxazole Allergy Vomiting Verified 04/07/18 12:30 [From Bactrim] trimethoprim [From Bactrim] Allergy Vomiting Verified 04/07/18 12:30 Home Medications: Home Medications ALPRAZolam [Alprazolam] 1 mg PO BID PRN 04/07/18 [History Confirmed 04/07/18] Aripiprazole Maintena (NF) [Abilify Maintena (NF)] 400 mg IM Q28D 04/07/18 [ History Confirmed 04/07/18] Asenapine(NF) [Saphris(NF)] 5 mg SL BEDTIME 04/07/18 [History Confirmed 04/07/18 ] Asenapine(NF) [Saphris(NF)] 10 mg SL BEDTIME 04/07/18 [History Confirmed ] Doxepin (NF) 75 mg PO BEDTIME 04/07/18 [History Confirmed 04/07/18] Fluoxetine LIQ* 40 mg PO DAILY 04/07/18 [History Confirmed 04/07/18] Naltrexone INJ [Vivitrol INJ] 380 mg IM MONTHLY 04/07/18 [History Confirmed ] Naltrexone TAB* 50 mg PO DAILY 04/07/18 [History Confirmed 04/07/18] Propranolol Hcl 20mg/5ml 10 mg PO BID 04/07/18 [History Confirmed 04/07/18] Zolpidem TAB* [Ambien TAB*] 10 mg PO BEDTIME PRN 04/07/18 [History Confirmed ] buPROPion SR TAB* [Wellbutrin SR TAB*] 150 mg PO BID 04/07/18 [History Confirmed 04/07/18] buPROPion TAB* [Wellbutrin TAB*] 100 mg PO QAM 04/07/18 [History Confirmed 04/07] busPIRone TAB* [Buspar TAB*] 10 mg PO BID 04/07/18 [History Confirmed 04/07/18] PMH/Surg Hx/FS Hx/Imm Hx Endocrine/Hematology History: Reports: Hx Blood Disorders - ITP, Hx Diabetes - TYPE 2, W/ INSULIN Denies: Hx Anticoagulant Therapy, Hx Thyroid Disease, Other Endocrine/ Hematological Disorders Cardiovascular History: Denies: Hx Hypertension, Hx Pacemaker/ICD, Other Cardiovascular Problems/ Disorders Respiratory History: Reports: Hx Asthma Denies: Hx Chronic Obstructive Pulmonary Disease (COPD), Other Respiratory Problems/Disorders GI History: Reports: Hx Irritable Bowel Denies: Hx Ulcer, Other GI Disorders History: Reports: Other Problems/Disorders - PCOS Denies: Hx Renal Disease Musculoskeletal History: Reports: Other Musculoskeletal History - NUMBNESS/ TINGLING/PAIN IN EXTREMITIES Sensory History: Reports: Hx Contacts or Glasses Denies: Hx Legally Blind, Hx Deafness, Other Sensory Impairments Opthamlomology History: Reports: Hx Contacts or Glasses Denies: Hx Legally Blind, Other Sensory Impairments Neurological History: Denies: Hx Dementia, Hx Seizures, Other Neuro Impairments/Disorders Psychiatric History: Reports: Hx Anxiety, Hx Attention Deficit Hyperactivity Disorder, Hx Depression, Hx Post Traumatic Stress Disorder, Hx Inpatient Treatment, Hx Community Mental Health Tx, Hx Schizophrenia Denies: Hx Eating Disorder, Hx of Violent Episodes Against Others, Hx Substance Abuse, Other Psychiatric Issues/Disorders - Surgical History Surgery Procedure, Year, and Place: foot surgeries Infectious Disease History: Denies: Hx Clostridium Difficile, Hx Hepatitis, Hx Human Immunodeficiency Virus (HIV), Hx of Known/Suspected MRSA, Hx Shingles, Hx Tuberculosis, Hx Known/ Suspected VRE, Hx Known/Suspected VRSA, History Other Infectious Disease, Traveled Outside the [place] in Last 30 Days - Family History Known Family History: Positive: Hypertension, Diabetes Family History: FHx of schizophrenia. FHx of mood disorders. FHx of bipolar disorders. Fhx of anxiety disorders. FHx of Depression. Fhx of alcohol abuse - Social History Alcohol Use: None Alcohol Amount: [id number] Substance Use Type: Reports: None Hx Tobacco Use: Yes Smoking Status (MU): Light Every Day Tobacco Smoker - 3-4 cigarettes/day Type: Cigarettes Have You Smoked in the Last Year: No Review of Systems Negative: Fever Psychological: Other - POSITIVE: HI AND HEARING VOICES; NEGATIVE: SI All Other Systems Reviewed And Are Negative: Yes Physical Exam - Summary Physical Exam Summary: Appearance: Well-appearing, Well-nourished, standing in the ED room Skin: Warm, dry, no obvious rash Eyes: sclera anicteric, no conjunctival pallor ENT: mucous membranes moist Neck: deferred Respiratory: No signs of respiratory distress Cardiovascular: Appears well perfused, pulses are nml Abdomen: deferred Musculoskeletal: Moving all 4 extremities without obvious discomfort Neurological: Awake and alert, mentation is normal, speech is fluent and appropriate Psychiatric: Patient's voice is flat, relatively free of any emotion, does not appear to be hallucinating and did not express any hallucinations Triage Information Reviewed: Yes Vital Signs Reviewed: Yes Diagnostics - Laboratory Result Diagrams: 04/07/18 11:52 04/07/18 11:52 Lab Statement: Any lab studies that have been ordered have been reviewed, and results considered in the medical decision making process. Course/Dx - Course Course Of Treatment: A 27 y/o female brought in by ambulance presents to the ED c/o hearing voices and increased HI. As per EMS, patient increased her doses of her medication, however, she started hearing voices and has increased HI. Patient does not have any SI, however, the voices are getting severe. EMS noted that the patient extremely cooperative and nice. Physical examination findings significant for patient's voice is flat, relatively free of any emotion, does not appear to be hallucinating and did not express any hallucinations. Hematology, Chemistry, urinalysis, and toxicology screens were done. Lab studies notable only for signs of urinary tract infection. On discussion with the patient, she has a history of UTIs, and tends not to have symptoms with them , which makes it difficult to say whether she should be treated with antibiotics for this. I would recommend starting her on Keflex 500 mg 3 times a day for the next 3 days. The antibiotic can be stopped if the culture is negative. In the ED course, the patient received Xanax, Keflex, and Nicotine. After [facility], patient care was discussed with Dr. Yimi Fontenot who accepts patient for admission (via involuntary admission). Patient will be admitted with a diagnosis of schizophrenic disorder. Patient is agreeable with this plan. - Differential Dx/Clinical Impression Provider Diagnosis: Schizophrenic disorder - Physician Notifications Discussed Care Of Patient With: Yimi Fontenot Time Discussed With Above Provider: 15:12 Instructed by Provider To: Other - ACCEPTS PATIENT FOR ADMISSION VIA INVOLUNTARY ADMISSION. Discharge - Sign-Out/Discharge Documenting (check all that apply): Patient Departure - ADMIT, Sign-Out Patient - MICHAEL Signing out patient TO: Yimi Fontenot Receiving patient FROM: Emmanuel Hull - Discharge Plan Condition: Stable Disposition: PSYCHIATRIC FACILITY[place] [place] Referrals: Marshall Simons MD [Primary Care Provider] - - Billing Disposition and Condition Condition: STABLE Disposition: Psychiatric Facility [facility] [place] - Attestation Statements Document Initiated by William: Yes Documenting Scribe: Alejo Kaur Provider For Whom William is Documenting (Include Credential): Emmanuel Hull MD Scribrobina Attestation: Alejo Ghosh, scribed for Emmanuel Hull MD on 04/07/18 at 1526. Scribe Documentation Reviewed: Yes Provider Attestation: The documentation as recorded by the Alejo segura accurately reflects the service I personally performed and the decisions made by me, Emmanuel Hull MD Status of Scribe Document: Viewed
[2018-04-07] MEDS ORDERED: ALPRAZolam TAB* 0.5 MG PO SCH (12:30)
[2018-04-07 12:55] LABS: ABS Basophils 0 10^3/ul (0-0.2); ABS Eosinophils 0.1 10^3/ul (0-0.6); ABS Lymphocytes 1.3 10^3/ul (1.0-4.8); ABS Monocytes 0.3 10^3/ul (0-0.8); ABS Neutrophils 4.4 10^3/ul (1.5-7.7); ABS Nucleated RBC 0 10^3/ul; Eosinophil % 1.3 %; Hematocrit 40 % (35-47); Lymphocyte % 21.8 %; Mean Corpuscular HGB Conc 33 g/dl (31-36); Mean Corpuscular Hemoglobin 27 pg (27-31); Mean Corpuscular Volume 84 fL (80-97); Mean Platelet Volume 6.7 fL (7.4-10.4); Nucleated Red Blood Cells % 0.2; Platelet Count 275 10^3/ul (150-450); Red Blood Count 4.75 10^6/ul (4.00-5.40); Red Cell Distribution Width 12 % (10.5-15); White Blood Count 6.2 10^3/ul (3.5-10.8)
[2018-04-07] MEDS ORDERED: Mouth Piece, Nicotine* 1 EACH CARTRIDGE INH ONE (13:00)
[2018-04-07 13:15] LABS: ALT 5 U/L (7-52); AST 10 U/L (13-39); Albumin/Globulin Ratio 1.7 (1-3); Alkaline Phosphatase 82 U/L (34-104); Anion Gap 6 mmol/L (2-11); BUN/Creatinine Ratio 14.7 (8-20); Blood Urea Nitrogen 11 mg/dL (6-24); CO2 Carbon Dioxide 28 mmol/L (22-32); Chloride 102 mmol/L (101-111); EGFR Non-African American 91.4 (>60); Globulin 2.3 g/dL (2-4); Glucose 151 mg/dL (70-100); Sodium 136 mmol/L (135-145); Total Protein 6.3 g/dL (6.4-8.9)
[2018-04-07 13:21] LABS: Alcohol < 10 mg/dL (<10); HCG Pregnancy < 0.60 mIU/mL; Salicylate < 2.50 mg/dL (<30)
[2018-04-07 13:22] LABS: Urine Appearance Cloudy; Urine Bacteria 1+ (Absent); Urine Bilirubin Negative (Negative); Urine Blood Negative (Negative); Urine Color Yellow; Urine Glucose 1+(50 mg/dL) (Negative); Urine Ketones Negative (Negative); Urine Nitrite Negative (Negative); Urine Protein Negative (Negative); Urine Red Blood Cell 3+(>10/hpf) (Absent); Urine Specific Gravity 1.026 (1.010-1.030); Urine Urobilinogen Negative (Negative); Urine White Blood Cell 3+(>20/hpf) (Absent)
[2018-04-07 13:24] LABS: Barbiturates Urine Screen None Detected (None Detect); Benzodiazepine Urine Screen Presumptive Positive (None Detect); Urine Cannabinoids Screen None Detected (None Detect)
[2018-04-07 13:35] LABS: TSH (Thyroid Stimulating Horm) 3.06 mcIU/mL (0.34-5.60)
[2018-04-07] MEDS ORDERED: ALPRAZolam TAB* 0.25 MG PO ONE (15:15)
[2018-04-07] MEDS ORDERED: Acetaminophen TAB* 325 MG PO PRN (15:20)
[2018-04-07] MEDS ORDERED: Al Hydrox/Mg Hydrox/Simet LIQ* 30 ML UDC PO PRN (15:20)
[2018-04-07] MEDS: cloNIDine TAB* 0.1 MG PO PRN (21:08)
[2018-04-07] MEDS: Fluoxetine LIQ* 20 MG/5 ML UDC PO SCH (21:08)
[2018-04-07] MEDS: busPIRone TAB* 10 MG PO SCH (21:11)
[2018-04-07] MEDS: Cephalexin SUSP* 250 MG/5 ML ORAL.SUSP 100 ML BTL PO SCH (21:14)
[2018-04-07] MEDS: buPROPion SR TAB.SR* 150 MG PO SCH (21:14)
[2018-04-07] MEDS ORDERED: Zolpidem TAB* 10 MG ONE (21:38)
[2018-04-07] MEDS ORDERED: Zolpidem TAB* 10 MG PO ONE (22:00)
[2018-04-07] MEDS: PTO: Liraglutide (NF) 18 MG/3 ML SUBCUT SCH (22:43)
[2018-04-08] MEDS: Fluoxetine LIQ* 20 MG/5 ML UDC PO SCH ×2 (00:06→21:26)
[2018-04-08] MEDS: Cephalexin SUSP* 250 MG/5 ML ORAL.SUSP 100 ML BTL PO SCH ×5 (00:06→20:49)
[2018-04-08 08:13] LABS: HDL Cholesterol 66.8 mg/dL
[2018-04-08] MEDS: Naltrexone TAB* 50 MG TAB PO SCH (08:16)
[2018-04-08] MEDS: buPROPion SR TAB.SR* 150 MG PO SCH (08:18)
[2018-04-08] MEDS: DROSPIRENONE PO SCH (09:17)
[2018-04-08] MEDS: busPIRone TAB* 10 MG PO SCH ×2 (09:17→20:53)
[2018-04-08] MEDS: ETHINYL ESTRADIOL PO SCH (09:17)
[2018-04-08] MEDS ORDERED: LORazepam TAB(*) 1 MG PO SCH ×2 (11:00→14:00)
[2018-04-08] MEDS: cloNIDine TAB* 0.1 MG PO PRN (18:25)
--- NOTE | 2018-04-08 18:56 | HP ---
HISTORY AND PHYSICAL: DATE OF ADMISSION: 04/07/18 PROVIDER: Cecille Trevino NP in Psychiatry. SUPERVISING PHYSICIAN: Yimi Fontenot MD * (DICTATED BY CECILLE TREVINO NP) JUSTIFICATION FOR ADMISSION: The patient is in need of 24-hour supervision and care secondary to auditory hallucinations that compel her to hurt or kill her mother with a knife. CHIEF COMPLAINT: "The voices don't like my mom, but I like my mom. There are too many people here, they're giving me flashbacks." HISTORY OF PRESENT ILLNESS: The patient is a 27-year-old single white female with a history of schizophrenia, who arrives, brought in by ambulance after she threatened to stab her mother with a plastic knife because the voices were telling her to hurt her mom because her mom would not stop talking to her. Kelsey is very specific about what she wants from this hospitalization. She states that she is having flashbacks of her ex-girlfriend, Buffy's, . She states that the auditory hallucinations are problematic. She states in the 13 years since she has begun having those, she has never acted upon them with the exception of the plastic knife incident. She states she was not really going to stab her mom, she just wanted to scare her. She loves her mom and her dad and her grandmother and she does not really like the rest of the family. Kelsey has many specific requests including medications, respite from her family which her family also wants. She wants to be safe on 04/13/18, which is the 1-year anniversary of Buffy's . She wants to be out of the hospital on 04/15/18, which is her 28th birthday. She wants to celebrate that she is one and quarter years clean. She wants to be treated carefully around her food needs, which include a banana and cheese with every meal and a bottle of water because she believes the tap water is poisoned. She states she is due for a Maintena 400 mg injection on 04/11/18 and she does not want Thorazine or doxepin. Her sleep is poor without Ambien. She seems to feel sort of a vague sense of guilt about everything she has done with the notable exception of wanting to stab her mother. She is able to concentrate throughout our discussion. She ate 2 plates of pasta at lunch. She is not suicidal. PAST PSYCHIATRIC HISTORY: She has had previous admissions, but not in 6-1/2 years. She has been hospitalized here at [facility] on the adolescent side. She has seen Dr. Sylvain Wise at that time. Right now, she is seeing Dr. Renata Brand at the [facility]. She also sees Sandra Baker RN and Tena Dewitt as her health care specialist. She hears voices that tell her to stab her mother. She does not have access to weapons. She lives with her parents and they have removed all the knives from their apartment. She has taken a long list of psychiatric medications in the past. SUBSTANCE ABUSE HISTORY: She has been addicted to medication in the past. She currently sees a woman, also named Sandra at the [facility]. She does smoke cigarettes socially and thinks she may smoke up to 5 cigarettes a week. PAST MEDICAL HISTORY: Kelsey is obese. She has a history of bronchial asthma, polycystic ovarian syndrome, and warts on her lower extremities. MEDICATIONS: She is currently taking; 1. Abilify Maintena 400. 2. Abilify by mouth 2 mg. 3. Ambien 10 mg. 4. Xanax 1 mg b.i.d. She requires nicotine replacements. She cannot chew due to her dental work, so she needs an inhaler. ALLERGIES: She is allergic to METFORMIN, COZAAR, CHERRIES, SULFA, and BACTRIM. FAMILY HISTORY: Kelsey's father has a history of depressive disorder and he suffers from diabetes. SOCIAL HISTORY: Kelsey is the only child from an intact family. Dad works as a psychologist from [employer] in the [facility]. Mom used to be a temporary receptionist at [employer]. Kelsey is dependent on her parents and calls them at times during the day and at night when she is frightened. She is on social security disability. She lives in a 3 bedroom apartment with her parents. She is no longer employed. She graduated from high school and did some college, but without additional help she could not navigate college. She has romantically partnered with females. REVIEW OF SYSTEMS: The patient reports feeling fatigued due to not having been able to sleep due to lack of Ambien. She denies current shortness of breath, heat or cold intolerance, chest pain or abdominal pain. She denies neurological symptoms. She denies fevers or changes in weight. PHYSICAL EXAMINATION VITAL SIGNS: On 04/07/18 at 12:36, temperature was 97.6, pulse was 104, respirations 16, O2 sat on room air 100%, blood pressure 122/87. LABORATORY DATA: Largely within normal limits. Exceptions included MPV low at 6.7, glucose was high at 151, hemoglobin A1c is 7.3. AST, ALT and total protein are low. Triglycerides 221, cholesterol 176, LDL cholesterol 65, HDL cholesterol 66.8. Incidentally, her TSH is 3.06. Urine has contained leukocyte esterase, white blood cells, red blood cells, squamous epithelial cells, bacteria, yeast, and glucose. Her toxicology screen is positive for benzodiazepines, which is expected as she takes Xanax outpatient. MENTAL STATUS EXAMINATION: Kelsey is a short and plump woman appearing somewhat older than her stated age. She has the sides of her hair shaved and the top of her hair dyed or bleached orange. She is calm and cooperative perhaps because she has taken 1 mg of Ativan. Her speech is pressured and is sometimes mumbled. She is dysphoric. She is not tearful, but she does appear sad. She has a sequential thought process. Her thought content is free of delusions. She states she is not truly homicidal, but that her voices encourage her to hurt her mother. She states she is not suicidal. She denies visual hallucinations, but does endorse auditory hallucinations. Her insight is fair. Her judgment is fair to poor. She is alert and oriented x3. DIAGNOSES: [place] I: Schizophrenia. Substance-use disorder in remission. [place] II: Rule out borderline personality disorder. IMPRESSION: Kelsey is a 27-year-old woman who comes to the hospital by ambulance following threatening to stab her mother with a plastic knife in response to her mom not leaving her alone. The voices told Kelsey to stab her mother with a knife and the ambulance was called to bring her here. PLAN: The patient is admitted to the adult behavioral health unit and placed on q.15-minute checks for her own safety. These are rapidly changed to 30- minute checks. She is encouraged to participate in the milieu in individual and group therapies. Estimated length of stay is 5 to 10 days. We will titrate medications to efficacy and monitor for mood and thought content. Prozac will be increased and the aripiprazole injection will be administered during her stay. Discharge planning will include family involvement and outpatient providers. CECILLE TREVINO, NAKUL [id number]/CPS #: [id number] ALLEN
[2018-04-08] MEDS: PTO: Liraglutide (NF) 18 MG/3 ML SUBCUT SCH (20:49)
[2018-04-08] MEDS: LORazepam TAB(*) 1 MG PO SCH (20:51)
[2018-04-08] MEDS: Zolpidem TAB* 10 MG PO SCH (21:28)
[2018-04-09] MEDS: cloNIDine TAB* 0.1 MG PO PRN ×3 (02:08→19:36)
[2018-04-09] MEDS: Cephalexin SUSP* 250 MG/5 ML ORAL.SUSP 100 ML BTL PO SCH ×3 (08:51→21:54)
[2018-04-09] MEDS: Naltrexone TAB* 50 MG TAB PO SCH (08:51)
[2018-04-09] MEDS: ETHINYL ESTRADIOL PO SCH (08:53)
[2018-04-09] MEDS: busPIRone TAB* 10 MG PO SCH ×2 (08:53→21:54)
[2018-04-09] MEDS: DROSPIRENONE PO SCH (08:53)
[2018-04-09] MEDS: LORazepam TAB(*) 0.5 MG PO SCH ×2 (08:53→13:48)
[2018-04-09] MEDS: Ibuprofen ADULT LIQ* 600 MG/30 ML UDC PO SCH ×2 (16:22→21:59)
[2018-04-09] MEDS ORDERED: [UNRECOGNIZED DRUG - OTHER] IM ONE (18:45)
[2018-04-09] MEDS: Magic M W2 Ben/Maal/Nyst/Lido* 240 ML MOUTHWASH (alt formulation) SWISH SPIT SCH (18:54)
[2018-04-09] MEDS: Nystatin CREAM* 15 GM TUBE TOPICAL SCH (19:22)
[2018-04-09] MEDS: LORazepam TAB(*) 1 MG PO SCH (21:54)
[2018-04-09] MEDS: Zolpidem TAB* 10 MG PO SCH (21:55)
[2018-04-09] MEDS: Fluoxetine LIQ* 20 MG/5 ML UDC PO SCH (21:55)
[2018-04-09] MEDS: PTO: Liraglutide (NF) 18 MG/3 ML SUBCUT SCH (21:56)
--- NOTE | 2018-04-09 22:47 | PN ---
Subjective - Subjective Date of Service: 04/09/18 Service Type: 48776 Hosp care 25 min moderate complexity Subjective: Kelsey, her mom, and her grandmother and I meet at lunch. The dynamic noticed is that Kelsey's mom speaks and Kelsey checks out. Trying to engage Kelsey in conversation is difficult. Kelsey can be coaxed into talking and being agreeable to plans for her increased independence, but later in the day she asserts she has no coping skills and asks for assistance and company doing most tasks. Her ex-girlfriend Buffy's has a one-year anniversary karan the . Kelsey 's birthday is the . Respite services have agreed to interview Kelsey on the so that she can move in on the . Objective - Appearance Appearance: Obese Dysmorphic Features: No Grooming: Fairly Well Kept - Behavior Psychomotor Activities: Normal Exhibits Abnormal Movement: No - Attitude and Relatedness Attitude and Relatedness: Needy Eye Contact: Fair - Speech Quality: Pressured Latencies: Normal Quantity: Appropriate - Mood Patient's Decription of Mood: "Okay" - Affect Observed Affect: Fair Affect Consistent with: Dysphoria - Thought Process Patient's Thought Process: Coherent, Circumstantial Thought Content: Yes Passive Wish, Yes Suicidal Planning, No Homicidal Ideation, No Paranoid Ideation - Sensorium Experiencing Hallucinations: Yes Type of Hallucinations: Visual: No, Auditory: Yes, Command: No - Level of Consciousness Level of Consciousness: Alert Orientation: Yes Intact, Yes Orientated to Time, Yes Orientated to Place, Yes Orientated to Person - Impulse Control Impulse Control: Impaired - Insight and Judgement Insight and Judgement: Poor - Group Participation Particating in Group Activities: Yes - Medication Management Medication Management Adherence: Yes Assessment - Assessment Merits Inpatient Hospitalization: For Immediate Safety, For Discharge Planning Inpatient DSM-V Dx: F20.9 Clinical Impression: Kelsey is a 27-year-old developmentally delayed woman with schizophrenia who comes to the hospital with homicidal ideation toward her mother and a threat toward her with a plastic knife. Kelsey is also struggling with the one-year anniversary of her ex-girlfriend's . In addition, her parents are urging Kelsey into respite care and possibly new living situation. MHU: Problem List - Patient Problems (1) Schizophrenia Current Visit: Yes Status: Acute Priority: High Code(s): F20.9 - SCHIZOPHRENIA, UNSPECIFIED SNOMED Code(s): 80887114 Plan - Plan Treatment Plan: Name: NELLY CARO Birthdate: 1990 [id number] Continued Medication Management: Continue Outpt Medication Medications: Current Medications Acetaminophen (Tylenol Tab*) 650 mg PO Q4H PRN PRN Reason: for pain; or Temp >101 F Al Hydrox/Mg Hydrox/Simethicone (Maalox Plus*) 30 ml PO Q4H PRN PRN Reason: INDIGESTION Buspirone HCl (Buspar Tab*) 10 mg PO BID [facility] Last Admin: 04/09/18 21:54 Dose: 10 mg Cephalexin HCl (Keflex Susp*) 500 mg PO QID [facility] Last Admin: 04/09/18 21:54 Dose: Not Given Clonidine HCl (Catapres Tab*) 0.1 mg PO TID PRN PRN Reason: ANXIETY Last Admin: 04/09/18 19:36 Dose: 0.1 mg Fluoxetine HCl (Fluoxetine Liq*) 60 mg PO BEDTIME [facility] Last Admin: 04/09/18 21:55 Dose: 60 mg Ibuprofen (Motrin Liq Adult*) 600 mg PO 0900,1300,2100 [facility] Last Admin: 04/09/18 21:59 Dose: 600 mg Liraglutide (Victoza (Nf)) 1.2 mg SUBCUT BEDTIME [facility] Last Admin: 04/09/18 21:56 Dose: 1.2 mg Lorazepam (Ativan Tab(*)) 1 mg PO BEDTIME [facility] Last Admin: 04/09/18 21:54 Dose: 1 mg Lorazepam (Ativan Tab(*)) 0.5 mg PO 0900,1400 [facility] Last Admin: 04/09/18 13:48 Dose: 0.5 mg Multi-Ingredient Mouthwash/Gargle (Magic M W2 Raymond/Maal/Nyst/Lido*) 5 ml SWISH SPIT 0900,1300,1730,2100 [facility] Last Admin: 04/09/18 18:54 Dose: 5 ml Naltrexone HCl (Naltrexone Tab*) 50 mg PO DAILY [facility]; Protocol Last Admin: 04/09/18 08:51 Dose: Not Given Nicotine (Nicotine Inhaler*) 10 mg INH Q2H PRN PRN Reason: CRAVING Nft: Drosperinone And Ethinyl Estradiol 3mg/0.02mg Tablet 1 dose PO DAILY [facility] Last Admin: 04/09/18 08:53 Dose: 1 dose Nystatin (Nystatin Cream*) 1 applic TOPICAL BID [facility] Last Admin: 04/09/18 19:22 Dose: 1 applic Zolpidem Tartrate (Ambien Tab*) 10 mg PO BEDTIME [facility] Last Admin: 04/09/18 21:55 Dose: 10 mg - Discharge Plan Discharge Plan: Outpatient Follow Up Outpatient Program: [facility] Additional Comments: Continue long-acting aripiprazole. Investigate respite care options. Maintain medications for continued physical health.
[2018-04-10] MEDS: Magic M W2 Ben/Maal/Nyst/Lido* 240 ML MOUTHWASH (alt formulation) SWISH SPIT SCH ×4 (05:18→21:33)
[2018-04-10] MEDS: cloNIDine TAB* 0.1 MG PO PRN ×2 (05:19→18:11)
[2018-04-10] MEDS: Ibuprofen ADULT LIQ* 600 MG/30 ML UDC PO SCH ×3 (07:13→21:34)
[2018-04-10] MEDS: Naltrexone TAB* 50 MG TAB PO SCH ×2 (08:30→08:36)
[2018-04-10] MEDS: busPIRone TAB* 10 MG PO SCH ×2 (08:30→21:29)
[2018-04-10] MEDS: Cephalexin SUSP* 250 MG/5 ML ORAL.SUSP 100 ML BTL PO SCH ×5 (08:35→21:35)
[2018-04-10] MEDS: ETHINYL ESTRADIOL PO SCH (08:36)
[2018-04-10] MEDS: DROSPIRENONE PO SCH (08:36)
[2018-04-10] MEDS: Nystatin CREAM* 15 GM TUBE TOPICAL SCH (08:36)
[2018-04-10] MEDS: LORazepam TAB(*) 0.5 MG PO SCH ×3 (09:26→15:28)
[2018-04-10] MEDS: LORazepam TAB(*) 1 MG PO SCH (21:28)
[2018-04-10] MEDS: Zolpidem TAB* 10 MG PO SCH (21:29)
[2018-04-10] MEDS: Fluoxetine LIQ* 20 MG/5 ML UDC PO SCH (21:29)
[2018-04-10] MEDS: PTO: Liraglutide (NF) 18 MG/3 ML SUBCUT SCH (21:31)
[2018-04-11] MEDS: busPIRone TAB* 10 MG PO SCH ×2 (07:50→21:14)
[2018-04-11] MEDS: ETHINYL ESTRADIOL PO SCH (07:50)
[2018-04-11] MEDS: DROSPIRENONE PO SCH (07:50)
[2018-04-11] MEDS: LORazepam TAB(*) 0.5 MG PO SCH ×2 (07:50→15:32)
[2018-04-11] MEDS: Cephalexin SUSP* 250 MG/5 ML ORAL.SUSP 100 ML BTL PO SCH ×4 (07:52→21:39)
[2018-04-11] MEDS: Ibuprofen ADULT LIQ* 600 MG/30 ML UDC PO SCH ×5 (07:52→21:39)
[2018-04-11] MEDS: Nystatin CREAM* 15 GM TUBE TOPICAL SCH ×3 (07:52→21:39)
[2018-04-11] MEDS: Naltrexone TAB* 50 MG TAB PO SCH (07:52)
[2018-04-11] MEDS: Magic M W2 Ben/Maal/Nyst/Lido* 240 ML MOUTHWASH (alt formulation) SWISH SPIT SCH ×6 (07:52→21:39)
[2018-04-11] MEDS ORDERED: Acetaminophen ADULT LIQ* 650 MG/20.3 ML UDC PO PRN (12:00)
--- NOTE | 2018-04-11 15:43 | PN ---
Progress Note - Progress Note Date of Service: 04/11/18 Note: The note is based mostly on staff report as the sign writer letterer or painter didn't have any significant interaction due to unavoidable weather related issues. Risa has been doing fine psychiatrically per all reports other than acting in a childish manner. Concerned about upcoming anniversary of her GF and wish to leave on Thu. Denies SI, HI or psychosis. Plan is to continue current treatments.
[2018-04-11] MEDS: PTO: Liraglutide (NF) 18 MG/3 ML SUBCUT SCH (21:11)
[2018-04-11] MEDS: Fluoxetine LIQ* 20 MG/5 ML UDC PO SCH (21:13)
[2018-04-11] MEDS: Zolpidem TAB* 10 MG PO SCH (21:14)
[2018-04-11] MEDS: LORazepam TAB(*) 1 MG PO SCH (21:14)
[2018-04-11] MEDS: cloNIDine TAB* 0.1 MG PO PRN (21:19)
[2018-04-12] MEDS: busPIRone TAB* 10 MG PO SCH ×2 (08:17→22:03)
[2018-04-12] MEDS: DROSPIRENONE PO SCH (08:19)
[2018-04-12] MEDS: Naltrexone TAB* 50 MG TAB PO SCH (08:19)
[2018-04-12] MEDS: ETHINYL ESTRADIOL PO SCH (08:19)
[2018-04-12] MEDS: LORazepam TAB(*) 0.5 MG PO SCH ×2 (08:20→13:19)
[2018-04-12] MEDS: Cephalexin SUSP* 250 MG/5 ML ORAL.SUSP 100 ML BTL PO SCH ×4 (09:32→22:04)
[2018-04-12] MEDS: Ibuprofen ADULT LIQ* 600 MG/30 ML UDC PO SCH ×3 (11:20→22:05)
[2018-04-12] MEDS: Magic M W2 Ben/Maal/Nyst/Lido* 240 ML MOUTHWASH (alt formulation) SWISH SPIT SCH ×4 (11:21→22:06)
[2018-04-12] MEDS: Nystatin CREAM* 15 GM TUBE TOPICAL SCH ×2 (11:22→22:07)
--- NOTE | 2018-04-12 14:42 | PN ---
Subjective - Subjective Date of Service: 04/12/18 Service Type: 03999 Hosp care 35 min high complexity Subjective: Kelsey had a little meltdown today, but recovered quickly when she was able to discuss the issue with her parents. She was informed that she would not be leaving tomorrow, rather on the . She will be interviewed by [facility] respite program on the and be discharged to them on the . She really wants to be discharged before her birthday on the . Kelsey has been taking her medications appropriately and attempting to use coping skills. She managed the disappointing news of not being able to leave tomorrow very well. Objective - Appearance Appearance: Obese Dysmorphic Features: No Hygiene: Normal Grooming: Well Kept - Behavior Psychomotor Activities: Normal Exhibits Abnormal Movement: No - Attitude and Relatedness Attitude and Relatedness: Well Related Eye Contact: Good - Speech Quality: Pressured Latencies: Normal Quantity: Appropriate - Mood Patient's Decription of Mood: "Good" - Affect Observed Affect: Good Affect Consistent with: Euthymia - Thought Process Patient's Thought Process: Coherent, Goal Directed Thought Content: No Passive Wish, No Suicidal Planning, No Homicidal Ideation, No Paranoid Ideation - Sensorium Experiencing Hallucinations: No, Sensorium is Clear Type of Hallucinations: Visual: No, Auditory: No, Command: No - Level of Consciousness Level of Consciousness: Alert Orientation: Yes Intact, Yes Orientated to Time, Yes Orientated to Place, Yes Orientated to Person - Impulse Control Impulse Control: Impaired - Insight and Judgement Insight and Judgement: Fair - Group Participation Particating in Group Activities: Yes - Medication Management Medication Management Adherence: Yes Assessment - Assessment Inpatient DSM-V Dx: F20.9 Clinical Impression: Kelsey is a 27-year-old developmentally delayed woman with schizophrenia who comes to the hospital with homicidal ideation toward her mother and a threat toward her with a plastic knife. Kelsey is also struggling with the one-year anniversary of her ex-girlfriend's . In addition, her parents are urging Kelsey into respite care and possibly new living situation. MHU: Problem List - Patient Problems (1) Schizophrenia Current Visit: Yes Status: Acute Priority: High Code(s): F20.9 - SCHIZOPHRENIA, UNSPECIFIED SNOMED Code(s): 52641208 Plan - Plan Treatment Plan: [facility] Birthdate: 1990 [id number] Medications: Current Medications Acetaminophen (Tylenol Adult Liq*) 650 mg PO Q4H PRN PRN Reason: for pain; or Temp >101 F Last Admin: 04/11/18 11:51 Dose: 650 mg Al Hydrox/Mg Hydrox/Simethicone (Maalox Plus*) 30 ml PO Q4H PRN PRN Reason: INDIGESTION Buspirone HCl (Buspar Tab*) 10 mg PO BID [facility] Last Admin: 04/12/18 08:17 Dose: 10 mg Cephalexin HCl (Keflex Susp*) 500 mg PO QID [facility] Last Admin: 04/12/18 13:20 Dose: Not Given Clonidine HCl (Catapres Tab*) 0.1 mg PO TID PRN PRN Reason: ANXIETY Last Admin: 04/11/18 21:19 Dose: 0.1 mg Fluoxetine HCl (Fluoxetine Liq*) 60 mg PO BEDTIME [facility] Last Admin: 04/11/18 21:13 Dose: 60 mg Ibuprofen (Motrin Liq Adult*) 600 mg PO 0900,1300,2100 [facility] Last Admin: 04/12/18 13:19 Dose: 600 mg Liraglutide (Victoza (Nf)) 1.2 mg SUBCUT BEDTIME [facility] Last Admin: 04/11/18 21:11 Dose: 1.2 mg Lorazepam (Ativan Tab(*)) 1 mg PO BEDTIME [facility] Last Admin: 04/11/18 21:14 Dose: 1 mg Lorazepam (Ativan Tab(*)) 0.5 mg PO 0900,1400 [facility] Last Admin: 04/12/18 13:19 Dose: 0.5 mg Multi-Ingredient Mouthwash/Gargle (Magic M W2 Raymond/Maal/Nyst/Lido*) 5 ml SWISH SPIT 0900,1300,1730,2100 [facility] Last Admin: 04/12/18 13:20 Dose: Not Given Naltrexone HCl (Naltrexone Tab*) 50 mg PO DAILY [facility]; Protocol Last Admin: 04/12/18 08:19 Dose: Not Given Nicotine (Nicotine Inhaler*) 10 mg INH Q2H PRN PRN Reason: CRAVING Nft: Drosperinone And Ethinyl Estradiol 3mg/0.02mg Tablet 1 dose PO DAILY [facility] Last Admin: 04/12/18 08:19 Dose: 1 dose Nystatin (Nystatin Cream*) 1 applic TOPICAL BID [facility] Last Admin: 04/12/18 11:22 Dose: Not Given Zolpidem Tartrate (Ambien Tab*) 10 mg PO BEDTIME [facility] Last Admin: 04/11/18 21:14 Dose: 10 mg - Discharge Plan Discharge Plan: Outpatient Follow Up Outpatient Program: [facility] Additional Comments: Continue long-acting aripiprazole. Investigate respite care options. Maintain medications for continued physical health. Kelsey will be discharged Thursday04/14/18. She will stay here on the to facilitate interview by Bhavesh Rehman and to ensure lack of public decompensation on the anniversary of her ex-girlfriend's .
[2018-04-12] MEDS: cloNIDine TAB* 0.1 MG PO PRN ×2 (16:05→22:07)
[2018-04-12] MEDS: Zolpidem TAB* 10 MG PO SCH (22:03)
[2018-04-12] MEDS: LORazepam TAB(*) 1 MG PO SCH (22:03)
[2018-04-12] MEDS: Fluoxetine LIQ* 20 MG/5 ML UDC PO SCH (22:04)
[2018-04-12] MEDS: PTO: Liraglutide (NF) 18 MG/3 ML SUBCUT SCH (22:06)
[2018-04-13] MEDS: Ibuprofen ADULT LIQ* 600 MG/30 ML UDC PO SCH ×3 (08:16→22:12)
[2018-04-13] MEDS: DROSPIRENONE PO SCH (08:17)
[2018-04-13] MEDS: ETHINYL ESTRADIOL PO SCH (08:17)
[2018-04-13] MEDS: busPIRone TAB* 10 MG PO SCH ×2 (08:17→22:08)
[2018-04-13] MEDS: LORazepam TAB(*) 0.5 MG PO SCH ×2 (08:17→13:20)
[2018-04-13] MEDS: Cephalexin SUSP* 250 MG/5 ML ORAL.SUSP 100 ML BTL PO SCH ×4 (08:19→22:09)
[2018-04-13] MEDS: Naltrexone TAB* 50 MG TAB PO SCH (08:21)
[2018-04-13] MEDS: Magic M W2 Ben/Maal/Nyst/Lido* 240 ML MOUTHWASH (alt formulation) SWISH SPIT SCH ×4 (11:18→22:12)
[2018-04-13] MEDS: Nystatin CREAM* 15 GM TUBE TOPICAL SCH ×2 (11:18→22:12)
[2018-04-13] MEDS: cloNIDine TAB* 0.1 MG PO PRN ×3 (15:45→22:17)
[2018-04-13] MEDS: Fluoxetine LIQ* 20 MG/5 ML UDC PO SCH (22:09)
[2018-04-13] MEDS: Zolpidem TAB* 10 MG PO SCH (22:11)
[2018-04-13] MEDS: LORazepam TAB(*) 1 MG PO SCH (22:11)
[2018-04-13] MEDS: PTO: Liraglutide (NF) 18 MG/3 ML SUBCUT SCH (22:13)
[2018-04-14] MEDS: Ibuprofen ADULT LIQ* 600 MG/30 ML UDC PO SCH ×2 (01:48→08:42)
[2018-04-14] MEDS: LORazepam TAB(*) 0.5 MG PO SCH (08:39)
[2018-04-14] MEDS: Cephalexin SUSP* 250 MG/5 ML ORAL.SUSP 100 ML BTL PO SCH (08:39)
[2018-04-14] MEDS: Naltrexone TAB* 50 MG TAB PO SCH (08:39)
[2018-04-14] MEDS: DROSPIRENONE PO SCH (08:40)
[2018-04-14] MEDS: ETHINYL ESTRADIOL PO SCH (08:40)
[2018-04-14] MEDS: Nystatin CREAM* 15 GM TUBE TOPICAL SCH (08:42)
[2018-04-14] MEDS: Magic M W2 Ben/Maal/Nyst/Lido* 240 ML MOUTHWASH (alt formulation) SWISH SPIT SCH (09:02)
[2018-04-14] MEDS: busPIRone TAB* 10 MG PO SCH (09:11)
[2018-04-14 09:52] VITALS: BP 128/67
--- NOTE | 2018-04-15 11:43 | DS ---
CC: [facility]; [facility]; Dr. Marshall Simons; [facility]. DISCHARGE SUMMARY: DATE OF ADMISSION: 04/07/18 DATE OF DISCHARGE: 04/14/18 PROVIDER: Cecille Trevino NP, in Psychiatry. SUPERVISING PHYSICIAN: Dr. Yimi Fonetnot DIAGNOSES: [place] I: Schizophrenia. [place] II: Rule out borderline personality disorder and developmental delay. CONDITION AT THE TIME OF DISCHARGE: Improved, psychiatrically cleared, stable, participated in some groups, social with peers. Family is agreeable to discharge. She has done well here psychiatrically and she tolerated new medications well. MENTAL STATUS EXAM AT THE TIME OF DISCHARGE: Apolonia is calm, cooperative, makes good eye contacts. She is alert and oriented x3. Her grooming is good. Her speech pace is normal. Thought processes are logical. She is not psychotic or delusional. She denies AH, VH, SI, and HI. Her insight and judgment are fair. She states she is willing to follow up and she is urged to see her therapist, Sandra Baker. DISCHARGE INSTRUCTIONS TO THE PATIENT: A. Medications: These are the medications that she has been prescribed: 1. Tylenol liquid 650 mg p.o. q.4 hours p.r.n. pain. 2. Aripiprazole 400 mg q.28 days, last injected on 04/09/18. 3. BuSpar 10 mg b.i.d., dispensed 60. 4. Clonidine 0.1 t.i.d., dispensed 90. 5. Fluoxetine 60 mg liquid, dispensed 450 mL. 6. Ibuprofen liquid 600 mg p.o. p.r.n., dispensed 450 mL. 7. Victoza at bedtime 1.2 mg. 8. Lorazepam 0.5 mg at 9 in the morning and 2 p.m. and 1 mg at bedtime. 9. Magic mouthwash which includes Benadryl, Maalox, nystatin, and lidocaine 4 times a day 5 mL to swish and spit. 10. Naltrexone injection 380 mg monthly. 11. Nystatin cream, apply twice a day. 12. Propranolol 10 mg b.i.d., liquid. 13. Ambien 10 mg at bedtime. B. Diet is regular. C. Activity is as tolerated. She is often a nonsmoker but she has declined referral to the [facility] Smokers Quitline at this time. If she decides to access this free service in the future, she can contact the quitline at [phone]. There are no studies pending at the time of dischargeEbony Wells Followup care. She has an appointment at [facility] on at 4 p.m., [facility] with Dr. Brand on 04/15/18 at 2:30 p.m., [facility] on 04/19/18 with Sandra Baker. She has an appointment with [facility] on 04/19/18 at 10 a.m. and [facility] on 04/16/18 at 1 p.m. She is also recommended to follow up with Dr. Marshall Simons. E. Substance abuse. She is already referred to the [facility] and she is also receiving the Vivitrol injection. HOSPITAL COURSE: Part A. Chief Complaint: "The voices don't like my mom, but I like my mom. There are too many people here, they are giving me flashbacks." The patient is a 27-year-old single white female with a history of schizophrenia , who arrives, brought in by ambulance after she threatened to stab her mother with a plastic knife because the voices were telling her to hurt her mom because her mom would not stop talking to her. Kelsey is very specific about what she wants from this hospitalization. She states she is having flashbacks of her ex-girlfriend, Buffy's . She states that the auditory hallucinations are problematic. She states in the 13 years since she has having those, she has never acted upon them with the exception of the plastic knife incident. She states she was not really going to stab her mom, she just wanted to scare her. She loves her mom and her dad and her grandmother and she does not really like the rest of the family. Kelsey has had many specific requests including medication respite from her family which her family also wants. She wants to be safe on 04/13/18, which is the 1-year anniversary of Buffy's . She wants to be out of the hospital on 04/15/18, which is her 28th birthday. She wants to celebrate that she is one and one-quarter years clean. She wants to be treated carefully around her food needs which include a banana and cheese with every meal and a bottle of water because she believes the tap water is poisoned. She states she is due for a Maintena injection on 04/11/18 and she does not want Thorazine or doxepin. Her sleep is poor without Ambien. She seems to feel sort of a vague sense of guilt about everything she has done with the notable exception of wanting to stab her mother. She is able to concentrate throughout our discussion. She ate 2 plates of pasta at lunch. She is not suicidal. Part B. Psychiatric treatment was rendered. Kelsey was admitted to the adult behavioral unit and placed on 15-minute checks for safety. She did well in the unit having only 1 meltdown and she went to groups. She interacted with her peers well, although she found them irritating. Kelsey appreciated the clonidine that she was taking, she tolerated it well. Medications on discharge are listed above. Kelsey did not have any outbursts or problems on 04/13/18, which was Buffy's anniversary of her . I did meet with the family, with mom and dad and grandmom. They were all very concerned about Kelsey, feeling as though maybe she should have been in the hospital at other times but were also grateful she had not been in the hospital for 6-1/2 years here at [facility]. The family had many requests, the most salient being respite care for Kelsey. Less related to her hospitalization were things like financial difficulties and interactions with her mother, which are problematic but beyond the scope of the hospitalization. We did arrange to have her visit a [facility] employee to be screened, which did not work out while in the hospital, so she has it now scheduled for Thursday04/16/18 where she will go to their offices and then be transferred into their apartment for respite care for up to 90 days. Kelsey is excited about her birthday on [birth year] and she is delighted to have been discharged. She is on an atypical antipsychotic: Abilify Maintena. Her hemoglobin A1c is 7.3, her triglycerides are 221, cholesterol 176, LDL cholesterol 65, HDL cholesterol 66.8. It should be noted that her TSH is 3.06. Nutrition consult was entered. She is improved. She is happier. Her sleep is good. Her anxiety is lower. Her appetite remains healthy. Energy is improved. Her concentration has not changed, but she is not having homicidal ideations any longer and in fact seems to get along with her mother quite well. CECILLE TREVINO, NAKUL [id number]/[facility] #: [id number] ALLEN
== END 2018-04-14 13:10 | disposition home or self-care (01) | DRG 750 ==
LOC: ED 12:16 → BSU 15:20
PROVIDERS: ADMIT Psychiatry & Neurology Psychiatry; ATTEND Psychiatry & Neurology Psychiatry
DX: F20.9 Schizophrenia, unspecified (principal); F60.3 Borderline personality disorder; R62.50 Unspecified lack of expected normal physiological development in childhood; F17.210 Nicotine dependence, cigarettes, uncomplicated; E66.9 Obesity, unspecified; Z68.36 Body mass index [BMI] 36.0-36.9, adult; J45.909 Unspecified asthma, uncomplicated; E28.2 Polycystic ovarian syndrome; Z79.899 Other long term (current) drug therapy; Z88.2 Allergy status to sulfonamides; Z88.8 Allergy status to other drugs, medicaments and biological substances; Z91.018 Allergy to other foods; F19.21 Other psychoactive substance dependence, in remission
CPT/HCPCS: 36415; 80053; 80061; 80307; 80320; 80329; 81003; 81015; 83036; 84443; 84702; 85025; 87077; 87086; 87186; 99222; 99232; 99233; 99284; A9270-GY; G0480

== ENCOUNTER 2018-08-28 00:07 | Emergency (ER) | payer BC, MEDICAID ==
[2018-08-28] MEDS ORDERED: Albuterol/Ipratropium NEB.SOL* Albuterol 2.5 MG/Ipratropium 0.5 MG 3 ML INH ONE (00:28)
[2018-08-28] MEDS ORDERED: predniSONE TAB* 20 MG PO ONE (00:28)
[2018-08-28] MEDS ORDERED: Benzonatate CAP* 100 MG PO ONE (00:43)
--- NOTE | 2018-08-28 01:03 | ED ---
Respiratory - HPI Summary HPI Summary: 28 year old female presents with cough for the past couple days. She states she started getting short of breath with the cough. She has had a productive cough. Denies any fevers or chills. Does have a history of asthma but does not use an inhaler. Has not tried anything for her symptoms. She admits to sinus congestion. No bowel pain. No nausea vomiting. No chest pain. denies any pain or swelling in calf muscles. - History of Current Complaint Chief Complaint: EDUpperRespComplaint Stated Complaint: COUGH PER PT Time Seen by Provider: 08/28/18 00:28 Pain Intensity: 7 Sputum Amount: Small Sputum Color: White - Allergy/Home Medications Allergies/Adverse Reactions: Allergies Allergy/AdvReac Type Severity Reaction Status Date / Time losartan [From Cozaar] Allergy Vomiting Verified 08/28/18 00:13 metformin Allergy Rash Verified 08/28/18 00:13 pregabalin [From Lyrica] Allergy Vomiting Verified 08/28/18 00:13 Sulfa (Sulfonamide Allergy Vomiting Verified 08/28/18 00:13 Antibiotics) sulfamethoxazole Allergy Vomiting Verified 08/28/18 00:13 [From Bactrim] trimethoprim [From Bactrim] Allergy Vomiting Verified 08/28/18 00:13 young flavor AdvReac Vomiting Verified 08/28/18 00:13 PMH/Surg Hx/FS Hx/Imm Hx Endocrine/Hematology History: Reports: Hx Blood Disorders - ITP, Hx Diabetes - TYPE 2, W/ INSULIN Denies: Hx Anticoagulant Therapy, Hx Thyroid Disease, Other Endocrine/ Hematological Disorders Cardiovascular History: Denies: Hx Hypertension, Hx Pacemaker/ICD, Other Cardiovascular Problems/ Disorders Respiratory History: Reports: Hx Asthma Denies: Hx Chronic Obstructive Pulmonary Disease (COPD), Other Respiratory Problems/Disorders GI History: Reports: Hx Irritable Bowel Denies: Hx Ulcer, Other GI Disorders History: Reports: Other Problems/Disorders - PCOS Denies: Hx Renal Disease Musculoskeletal History: Reports: Other Musculoskeletal History - NUMBNESS/ TINGLING/PAIN IN EXTREMITIES Sensory History: Reports: Hx Contacts or Glasses Denies: Hx Legally Blind, Hx Deafness, Hx Hearing Aid, Other Sensory Impairments Opthamlomology History: Reports: Hx Contacts or Glasses Denies: Hx Legally Blind, Other Sensory Impairments Neurological History: Denies: Hx Dementia, Hx Seizures, Other Neuro Impairments/Disorders Psychiatric History: Reports: Hx Anxiety, Hx Attention Deficit Hyperactivity Disorder, Hx Depression, Hx Post Traumatic Stress Disorder, Hx Inpatient Treatment, Hx Community Mental Health Tx, Hx Schizophrenia Denies: Hx Eating Disorder, Hx of Violent Episodes Against Others, Hx Substance Abuse, Other Psychiatric Issues/Disorders - Cancer History Cancer Type, Location and Year: Thyroid - Surgical History Surgery Procedure, Year, and Place: foot surgeries in 2nd grade, Infectious Disease History: No Infectious Disease History: Denies: Hx Clostridium Difficile, Hx Hepatitis, Hx Human Immunodeficiency Virus (HIV), Hx of Known/Suspected MRSA, Hx Shingles, Hx Tuberculosis, Hx Known/ Suspected VRE, Hx Known/Suspected VRSA, History Other Infectious Disease, Traveled Outside the [place] in Last 30 Days - Family History Known Family History: Positive: Hypertension, Diabetes Family History: FHx of schizophrenia. FHx of mood disorders. FHx of bipolar disorders. Fhx of anxiety disorders. FHx of Depression. Fhx of alcohol abuse - Social History Alcohol Use: Rare Alcohol Amount: [id number] Substance Use Type: Reports: None Hx Tobacco Use: Yes Smoking Status (MU): Light Every Day Tobacco Smoker Type: Cigarettes Have You Smoked in the Last Year: No Review of Systems Negative: Fever Negative: Chest Pain Positive: Shortness Of Breath, Cough Negative: Abdominal Pain, Vomiting, Nausea All Other Systems Reviewed And Are Negative: Yes Physical Exam Triage Information Reviewed: Yes Vital Signs On Initial Exam: Initial Vitals Temp Pulse Resp BP Pulse Ox 97.8 F 110 20 146/94 100 08/28/18 00:09 08/28/18 00:09 08/28/18 00:09 08/28/18 00:08/28/18 00:09 Vital Signs Reviewed: Yes Appearance: Positive: Well-Appearing Skin: Positive: Warm, Dry Head/Face: Positive: Normal Head/Face Inspection Eyes: Positive: Normal, Conjunctiva Clear ENT: Positive: Pharynx normal Respiratory/Lung Sounds: Positive: Clear to Auscultation, Breath Sounds Present Cardiovascular: Positive: Normal, RRR Abdomen Description: Positive: Nontender, Soft Bowel Sounds: Positive: Present Musculoskeletal: Positive: Normal Neurological: Positive: Normal Psychiatric: Positive: Normal Diagnostics - Vital Signs Vital Signs Temp Pulse Resp BP Pulse Ox 08/28/18 00:44 22 08/28/18 00:32 114 97 08/28/18 00:31 124 124/95 98 08/28/18 00:09 97.8 F 110 20 146/94 100 - Laboratory Lab Statement: Any lab studies that have been ordered have been reviewed, and results considered in the medical decision making process. - Radiology chest Radiology Interpretation Completed By: ED Physician Summary of Radiographic Findings: no active disease Re-Evaluation - Re-Evaluation First Eval Re-Evaluation Time: 01:25 Change: Unchanged Comment: Patient declined any type of steroids states it will interact with medications and side effects are not tolerable. Has been on Pulmicort in the past but this is steroid and so will not prescribe this at this time as patient is declining all steriod. Patient also had no improvement with treatment so think likely this is just a viral illness and is not affecting asthma at this time. Patient states only cough medication can take is deslym. Disposition - Course Course Of Treatment: 28 year old female presents with cough for the past couple days. She states she started getting short of breath with the cough. She has had a productive cough. Denies any fevers or chills. Does have a history of asthma but does not use an inhaler. Has not tried anything for her symptoms. She admits to sinus congestion. No bowel pain. No nausea vomiting. No chest pain. denies any pain or swelling in calf muscles. On exam lungs clear to auscultation. Has dry cough noted. Heart regular rate and rhythm. Chest x- ray normal. Gave breathing treatments and no improvement. she states that can do not steriods as she can not deal with side effects of weight gain and interact with her other meds. is tachycardia here but per records has had this in past. states can only take dextromethrophan for cough so will prescribe such. chest xray read by me as normal. discussed likely is viral and treat supportatively. told follow up with primary. warned if develop any worsening symptoms to return. Patient understands agrees with plan. - Differential Dx - Cardiopulmonary Differential Diagnoses - Cardiopulmonary: Asthma, Bronchitis, Lower Resp Infection - Diagnoses Provider Diagnoses: Asthma, Bronchitis Discharge - Sign-Out/Discharge Documenting (check all that apply): Patient Departure Patient Received Moderate/Deep Sedation with Procedure: No - Discharge Plan Condition: Good Disposition: HOME Prescriptions: Albuterol 2.5MG/3ML (0.083%)* [Ventolin 2.5 MG/3 ML NEB.ANDREI*] 2.5 mg INH Q4H # 20 neb.[email or web address] Dextromethorphan LIQ(NF) [Scot-Tussin Diabetes CF (NF)] 20 mg PO Q6HR #1 liq Patient Education Materials: Acute Bronchitis (ED) Forms: *Work Release Referrals: Marshall Simons MD [Primary Care Provider] - Additional Instructions: Use nebulizer every 4-6 hours for cough or wheezing use saline rinses in nose can take 10ml of delsym every 6 hours as needed for cough Follow up with primary within 5 days Return to ED if develops any new or worsening symptoms - Billing Disposition and Condition Condition: GOOD Disposition: Home
[2018-08-28 01:45] VITALS: BP 113/78
== END 2018-08-28 01:43 | disposition home or self-care (01) ==
LOC: ED 00:07
DX: J45.909 Unspecified asthma, uncomplicated (principal); R09.81 Nasal congestion; E11.9 Type 2 diabetes mellitus without complications; Z79.4 Long term (current) use of insulin; Z88.2 Allergy status to sulfonamides; Z88.8 Allergy status to other drugs, medicaments and biological substances; F17.210 Nicotine dependence, cigarettes, uncomplicated
CPT/HCPCS: 71046; 99282; A9270-GY; J7512

== ENCOUNTER 2018-11-22 15:01 | Emergency (ER) | payer BC, MEDICAID ==
[2018-11-22 15:15] VITALS: BP 119/78
--- NOTE | 2018-11-22 15:17 | UC ---
Complaint Female HPI - HPI Summary HPI Summary: 28 yo female presents with urinary frequency, bladder pressure, and left flank pain. She tells me that her symptoms began with urinary symptoms 3 days ago and have progressed to having left flank pain today. She states that she gets UTIs and kidney infections frequently due to her diabetes. She does not check her sugars. Has not been taking anything OTC for her symptoms. She denies fever, sob , chest pain, abdominal pain, n/v. - History Of Current Complaint Chief Complaint: UCGU Stated Complaint: URINARY COMPLAINT Time Seen by Provider: 11/22/18 15:02 Hx Obtained From: Patient Hx Last Menstrual Period: 10/11/18 Onset/Duration: Gradual Onset Severity Initially: Mild Severity Currently: Moderate Pain Intensity: 7 Pain Scale Used: 0-10 Numeric - Allergies/Home Medications Allergies/Adverse Reactions: Allergies Allergy/AdvReac Type Severity Reaction Status Date / Time losartan [From Cozaar] Allergy Vomiting Verified 11/22/18 15:05 metformin Allergy Rash Verified 11/22/18 15:05 pregabalin [From Lyrica] Allergy Vomiting Verified 11/22/18 15:05 Sulfa (Sulfonamide Allergy Vomiting Verified 11/22/18 15:05 Antibiotics) sulfamethoxazole Allergy Vomiting Verified 11/22/18 15:05 [From Bactrim] trimethoprim [From Bactrim] Allergy Vomiting Verified 11/22/18 15:05 young flavor AdvReac Vomiting Verified 11/22/18 15:05 Home Medications: Home Medications ARIPiprazole TAB* [Abilify TAB*] 10 mg PO DAILY 11/22/18 [History Confirmed 05/11] LORazepam TAB(*) [Ativan 1 MG TAB (*)] 1 mg PO BID MDD 1 tab 11/22/18 [History Confirmed 11/22/18] PMH/Surg Hx/FS Hx/Imm Hx Endocrine History: Diabetes, Thyroid Disease Respiratory History: Asthma Other History Of: Negative For: Anticoagulant Therapy - Surgical History Surgical History: Yes Surgery Procedure, Year, and Place: foot surgeries in 2nd grade, - Family History Known Family History: Positive: Hypertension, Diabetes Family History: FHx of schizophrenia. FHx of mood disorders. FHx of bipolar disorders. Fhx of anxiety disorders. FHx of Depression. Fhx of alcohol abuse - Social History Alcohol Use: Rare Alcohol Amount: socially Substance Use Type: None Smoking Status (MU): Former Smoker Type: Cigarettes Have You Smoked in the Last Year: No Household Exposure Type: Cigarettes - Immunization History Most Recent Influenza Vaccination: none Most Recent Pneumonia Vaccination: none Review of Systems All Other Systems Reviewed And Are Negative: No Constitutional: Positive: Negative Skin: Positive: Negative Respiratory: Positive: Negative Cardiovascular: Positive: Negative Gastrointestinal: Positive: Negative Genitourinary: Positive: Dysuria, Frequency, Other - Flank pain Neurological: Positive: Negative Psychological: Positive: Negative Physical Exam - Summary Physical Exam Summary: GENERAL: NAD. WDWN. No pain distress. SKIN: No rashes, sores, lesions, or open wounds. NECK: Supple. Nontender. No lymphadenopathy. CHEST: CTAB. No r/r/w. No accessory muscle use. Breathing comfortably and in no distress. CV: Pulses intact. Cap refill <2seconds ABDOMEN: Soft. NTTP. Mild LEFT CVA tenderness. Bowel sounds present NEURO: Alert. PSYCH: Age appropriate behavior. Triage Information Reviewed: Yes Vital Signs: Initial Vital Signs Temp 98.7 F 11/22/18 15:10 Pulse 122 11/22/18 15:10 Resp 20 11/22/18 15:10 BP 119/78 11/22/18 15:10 Pulse Ox 97 11/22/18 15:10 Laboratory Tests 11/22/18 15:21 POC Urine Color Aisha POC Urine Clarity Clear POC Urine pH 6.0 POC Ur Specif [place] >= 1.030 POC Urine Protein 1+ A POC Ur Glucose (UA) 3+ A POC Urine Ketones Trace A POC Urine Blood Negative POC Urine Nitrite Positive A POC Urine Bilirubin 1+ A POC Urine Urobilinogen 0.2 POC U Leukocyte Esteras Negative Vital Signs Reviewed: Yes Complaint Female Dx - Course Course Of Treatment: POC glucose 141 UA nitrite positive. Pt states that augmentin liquid works well for her and does cause GI distress - thus will rx for this today given that she tolerates it well, she is not allergic, and there is a chance of early kidney involvement and/or mixed pathogens given her diabetes. Last positive culture was e. coli sens to all anbx. - Differential Dx/Diagnosis Provider Diagnosis: UTI (urinary tract infection) Discharge ED - Sign-Out/Discharge Documenting (check all that apply): Patient Departure All imaging exams completed and their final reports reviewed: No Studies - Discharge Plan Condition: Stable Disposition: HOME Prescriptions: Amoxicillin/Clavulanate SUSP* [Augmentin SUSP*] 480 mg PO BID 7 Days #84 ml Phenazopyridine 200 mg (NF) [Pyridium 200 MG tab *] 200 mg PO TID #6 tab Patient Education Materials: Urinary Tract Infection in Women (ED) Referrals: Marshall Simons MD [Primary Care Provider] - Additional Instructions: If you develop a fever, shortness of breath, chest pain, new or worsening symptoms - please call your PCP or go to the ED immediately. - Billing Disposition and Condition Condition: STABLE Disposition: Home
== END 2018-11-22 15:45 | disposition home or self-care (01) ==
LOC: UCEAST 15:01
DX: N39.0 Urinary tract infection, site not specified (principal); E11.9 Type 2 diabetes mellitus without complications; E07.9 Disorder of thyroid, unspecified; J45.909 Unspecified asthma, uncomplicated; Z87.891 Personal history of nicotine dependence; Z88.2 Allergy status to sulfonamides
CPT/HCPCS: 81003; 87086; 99212; G0463

== ENCOUNTER 2019-01-23 14:59 | Emergency (ER) | payer BC, MEDICAID ==
--- OUTSIDE RECORDS SUMMARY | 2019-01-23 15:04 | XMS REPORT | Continuity of Care Document ---
:1990 External Reference #:[id number] Author Name Julio Galvan MD Address [address] [place] [id number] Problems Description No Information Available Social History Type Date Description Comments Sex Unknown Cigarette Use Denies Cigarette Use ETOH Use Denies alcohol use Recreational Drug Use Denies Drug Use Tobacco Use Start: Unknown End: Unknown Patient is a former smoker Smoking Status Reviewed: 12/27/18 Patient is a former smoker Allergies, Adverse Reactions, Alerts Active Allergies Reaction Severity Comments Date Metformin 03/26/2016 Cozaar 03/26/2016 sulfa 03/26/2016 Medications Active Medications SIG Qnty Indications Ordering Date Provider Trulicity 0.75 mg sq one 12pens Julio VEbony 12/27/2018 0.75mg/0.5ML time per week MD Cole Solution Pen-Inject Onetouch Verio 3 times a day 100units Julio V. 12/27/2018 Strips tests MD Cole Onetouch Delica 3 checks per day 100units Julio V. 12/27/2018 Lancets Fine 30G MD Cole 30G Misc Vascepa 2 by mouth twice 120caps Julio V. 12/27/2018 1gm Capsules a day MD Cole [id number] BD Uf Jaquelin Use as Directed 6 180units Julio VEbony 04/27/2018 Pen NDL Times Daily MD Cole BD Pen twice a day 200units Julio V. 04/09/2016 Needle/Jaquelin/Ultra injections MD Cole Fine/32G X 4mm 32G X 4 mm Misc Freestyle Lancets three times a day 180units E11.40 Julio V. 03/26/2016 Misc checks MD Navid Galvanyle Lite Test check three times 180units E11.40 Julio FaustEbony 03/26/2016 a day MD Cloe Strips Abilify take 1 tab in the Unknown 10mg Tablets morning Ativan one pill q24 Unknown 1mg Tablets hours as needed Clonidine HCL ER 1 by mouth twice Unknown 0.1mg a day Tablets ER 12HR Suboxone 1 film by mouth Unknown 4-1mg Film twice daily 04/11 1 by mouth daily Unknown 1-20mg-mcg Tablets Abilify Maintena injection once a Unknown 400mg month Prsy Hydrocortisone apply to area Unknown 2.5% twice a day as Cream needed Oxistat apply as needed Unknown 1% Cream Ventolin HFA 2 puffs every 4 Unknown hours as needed 108(90Base) mcg/Act Aerosol Pulmicort via nebulize bid Unknown 0.5mg/2ML prn Suspension Albuterol Sulfate use through Unknown nebulizer four (2.5mg/3ML) 0.083% times a day as Nebulizer needed History Medications Tresiba Flextouch as directed sq once 18ml Julio Galvan, 09/20/2018 - a day mdd 40 12/27/2018 200Unit/ML Solution Pen-Inject Novolog Flexpen 10 units sq three 15ml Vy Jacy Bunch, 07/01/2018 - times a day with ADJUNCT LECTURER 12/27/2018 100Unit/ML Solution meals as directed Pen-Inject Humalog Kwikpen inject SQ prior to 3ml Julio Galvan, 06/30/2018 - meals, max daily 07/01/2018 100Unit/ML Solution dose 30 units Pen-Inject Immunizations Description No Information Available Vital Signs Date Vital Result Comment 12/27/2018 10:49am Weight 227.00 lb Weight 102.967 kg BMI (Body Mass Index) 36.6 kg/m2 BP Systolic 138 mmHg BP Diastolic 84 mmHg Height 66 inches 5'6" Height in cm's 167.6 cm Hemoglobin A1C 7.9% done in office today 09/20/2018 10:55am Weight 220.00 lb Weight 99.792 kg BMI (Body Mass Index) 35.5 kg/m2 Respiratory Rate 18 /min Height 66 inches 5'6" Height in cm's 167.6 cm Glucose Meter 348 Results Test Date Facility Test Result H/L Range Note Comprehensive Panel 09/20/2018 [facility] Sodium 135 mmol/L Low 136-145 [phone] Potassium 4.2 mmol/L 3.5-5.2 Chloride 99 mmol/L Low 100-108 Co2 25 mmol/L 21-32 Glucose 351 mg/dL High 70-100 BUN 13 mg/dL 7-21 Creatinine 0.8 mg/dL 0.6-1.3 1 Calcium 9.9 mg/dL 8.5-10.8 GFR >60 T Bili 0.9 mg/dL 0.0-1.2 T Protein 7.2 gm/dL 6.4-8.2 Albumin 4.4 gm/dL 3.4-4.8 Alk Phos 100 U/L 40-150 Alt (SGPT) <10 U/L 0-55 Ast (Sgot) 10 U/L 5-37 Lipid Panel 09/20/2018 [facility] Cholesterol 209 mg/dL High 120 -200 [phone] Triglycerides 652 mg/dL High 0-149 HDL Cholesterol 52 mg/dL 40-60 Chol/HDL Ratio 4.0 <=4.4 2 LDL Direct 54 mg/dL 0-99 VLDL Calculated 130 Laboratory test 09/20/2018 [facility] TSH 5.13 High 0.34-4.82 finding [phone] uIU/mL Microalbumin 09/20/2018 [facility] Ur Albumin 57.0 mg/L Random Urine [phone] Ur Creatinine 63.3 mg/dL Alb/Creatinine Ratio 90.0 mg/g High 0.0-29.9 1 Normal Kidney Function or Mild Disease - GFR >OR= 60 Chronic Kidney Disease - GFR 15-59 Renal Failure - GFR < 15 GFR not calculated on patients under 18 years of age. 2 Cholesterol/HDL Ratio Interpretation Risk : 1/2 Avg Avg 2x Avg 3x Avg Male : 3.43 4.97 9.50 23.99 Female : 3.27 4.44 7.05 11.04 Procedures Description No Information Available Medical Devices Description No Information Available Encounters Type Date Location Provider Dx Diagnosis Office Visit 12/27/2018 [facility] Julio Trevino E11.40 Type 2 diabetes 10:45a [facility] Cole mellitus with Endocrinology diabetic neuropathy, [facility] E78.2 Mixed hyperlipidemia E03.9 Hypothyroidism, unspecified Office Visit 09/20/2018 [facility] Julio Trevino E11.40 Type 2 diabetes 10:45a [facility] mellitus with Endocrinology diabetic neuropathy, unsp E03.9 Hypothyroidism, unspecified R53.81 Other malaise E66.09 Other obesity due to excess calories Z71.3 Dietary counseling and surveillance Z68.35 Body mass index (BMI) 35.0-35.9, adult Assessments Date Code Description Provider 12/27/2018 E11.40 Type 2 diabetes mellitus with diabetic Julio Galvan MD neuropathy, unspecified 12/27/2018 E78.2 Mixed hyperlipidemia Julio Galvan MD 12/27/2018 E03.9 Hypothyroidism, unspecified Julio Galvan MD 09/20/2018 E11.40 Type 2 diabetes mellitus with diabetic Apc and Endo Draw neuropathy, [facility] 09/20/2018 E11.40 Type 2 diabetes mellitus with diabetic Julio Galvan MD neuropathy, [facility] 09/20/2018 R53.81 Other malaise Apc and Endo Draw 09/20/2018 E03.9 Hypothyroidism, unspecified Julio Galvan MD 09/20/2018 E66.09 Obesity Apc and Endo Draw 09/20/2018 R53.81 Other malaise Julio Galvan MD 09/20/2018 Z71.3 Dietary counseling and surveillance Apc and Endo Draw 09/20/2018 E66.09 Obesity Julio Galvan MD 09/20/2018 Z68.35 Body mass index 30+ - obesity Apc and Endo Draw 09/20/2018 Z71.3 Dietary counseling and surveillance Julio Galvan MD 09/20/2018 Z68.35 Body mass index 30+ - obesity Julio Galvan MD Plan of Treatment Future Appointment(s):03/25/2019 10:30 am - Julio Galvan MD at [facility] Diabetes & Mwgvfyfihcpyf88/07/2019 - Julio Galvan MDE11.40 Type 2 diabetes mellitus with diabetic neuropathy, unspecifiedComments:- I recommended starting Trulicity 0.75 mg once a week. I reviewed with her the use of the Trulicitypen and injection technique. I warned her to watch out for GI upset with starting the medication. She is a good candidate with no previous history of medullary thyroid cancer or pancreatitis- I recommended testing morning fasting blood sugars and calling in those numbers in several weeks for review- Ireviewed the need to be working on a diabetic diet: controlling portion sizes to limit calorie intake to avoid weight gain, and controlling better the amount of simple sugar and carbohydrate in the diet to avoid high spikes in the blood sugar readings- To avoid weight gain then, diet and exercise are an absolute must to be working on to control the diabetes and the weight issue- I encourage regular follow up with the eye doctors- I encouraged daily self foot exams watching for the development of blisters, or ulcers- I asked to be called with any recurrent hyperglycemia or hypoglycemia - I will seeher back in 2-3 months - I let her know I am resigning from my position in [place], [place] at the end of March of 2019. I gave her the name of Dr. Tony Cisneros in [place], [place] to see if he is taking new [id number] Mixed hyperlipidemiaComments:- I will start Vascepa 2 gm bid- I recommended good compliance with diet and exercise to benefit [id number] Hypothyroidism, unspecifiedComments:- I will continue her thyroid hormone Functional Status Description No Information Available Mental Status Description No Information Available Referrals Description No Information Available
[2019-01-23 15:14] VITALS: BP 112/78
--- NOTE | 2019-01-23 15:29 | UC ---
Back Pain HPI - HPI Summary HPI Summary: 28 year old female presents with complaints of neck and back pain. States she has a history of chronic neck and back pain. Has been followed by the pain clinic in the past. Reports 2 days ago she fell while ascending some stairs, fell forward landing on her right knee and left elbow. She has healing abrasions to the elbow and knee but denies and pain. States her back pain has been worse since the fall. Worsens with any type or movement or touch. Her primary care provider has already made a referral to PT and is scheduling her for an MRI to evaluate her back and neck pain. Denies fever, chills, rash, chest pain, shortness of breath, abdominal pain, nausea, vomiting, dysuria, frequency, urgency, hematuria, weakness, numbness, or tingling of lower extremities, or loss of bowel or bladder control. - History of Current Complaint Chief Complaint: UCBackPain Stated Complaint: BACK PAIN Time Seen by Provider: 01/23/19 15:22 Hx Obtained From: Patient Hx Last Menstrual Period: 12/21/18 Pain Intensity: 9 - Allergies/Home Medications Allergies/Adverse Reactions: Allergies Allergy/AdvReac Type Severity Reaction Status Date / Time losartan [From Cozaar] Allergy Vomiting Verified 01/23/19 15:14 metformin Allergy Rash Verified 01/23/19 15:14 pregabalin [From Lyrica] Allergy Vomiting Verified 01/23/19 15:14 Sulfa (Sulfonamide Allergy Vomiting Verified 01/23/19 15:14 Antibiotics) sulfamethoxazole Allergy Vomiting Verified 01/23/19 15:14 [From Bactrim] trimethoprim [From Bactrim] Allergy Vomiting Verified 01/23/19 15:14 young flavor AdvReac Vomiting Verified 01/23/19 15:14 Home Medications: Home Medications ALPRAZolam TAB* [Xanax TAB*] 1 mg PO TID 01/23/19 [History Confirmed 01/23/19] Nabumetone TAB* [Relafen TAB*] 500 mg PO BID 01/23/19 [History Confirmed ] Vortioxetine Hydrobromide [Trintellix] 10 mg PO DAILY 01/23/19 [History Confirmed 01/23/19] cloNIDine TAB* [Catapres 0.1 MG TAB*] 0.2 mg PO DAILY 01/23/19 [History Confirmed 01/23/19] PMH/Surg Hx/FS Hx/Imm Hx - Additional Past Medical History Additional PMH: chronic pain syndrome Endocrine History: Diabetes Respiratory History: Asthma Psychological History: Anxiety, Depression, Schizophrenia Other History Of: Negative For: Anticoagulant Therapy - Surgical History Surgical History: Yes Surgery Procedure, Year, and Place: foot surgeries in 2nd grade, - Family History Known Family History: Positive: Hypertension, Diabetes Family History: FHx of schizophrenia. FHx of mood disorders. FHx of bipolar disorders. Fhx of anxiety disorders. FHx of Depression. Fhx of alcohol abuse - Social History Occupation: Unemployed Lives: With Family Alcohol Use: None Alcohol Amount: 2 yearly Substance Use Type: None Smoking Status (MU): Current Some Day Smoker Type: Cigarettes Amount Used/How Often: 5 cigarettes day Have You Smoked in the Last Year: Yes Household Exposure Type: Cigarettes - Immunization History Most Recent Influenza Vaccination: none Most Recent Pneumonia Vaccination: none Review of Systems All Other Systems Reviewed And Are Negative: Yes Constitutional: Negative: Fever, Chills Skin: Negative: Rash Respiratory: Negative: Shortness Of Breath Cardiovascular: Negative: Chest Pain Gastrointestinal: Negative: Abdominal Pain, Vomiting, Nausea Genitourinary: Negative: Dysuria, Hematuria, Frequency, Urgency Motor: Negative: Weakness Neurovascular: Negative: Decreased Sensation Musculoskeletal: Positive: Other: - See HPI Neurological: Positive: Negative Is Patient Immunocompromised?: No Physical Exam - Summary Physical Exam Summary: GENERAL APPEARANCE: Alert and cooperative obese female who appears to be in no acute distress. NECK: Neck supple. Full ROM. No midline tenderness. Tenderness with palpation to the right paraspinous soft tissues without spasm. CARDIAC: Normal S1 and S2. No S3, S4 or murmurs. Rhythm is regular. There is no peripheral edema, cyanosis or pallor. Extremities are warm and well perfused. Capillary refill is less than 2 seconds. Peripheral pulses intact. LUNGS: Clear to auscultation without rales, rhonchi, wheezing or diminished breath sounds. ABDOMEN: Positive bowel sounds. Soft, nondistended, nontender. No guarding or rebound. No masses or hepatosplenomegally. MUSKULOSKELETAL: ROM intact to all extremities. No joint erythema or tenderness. Normal muscular development. Normal gait. BACK: No midline spinal deformity or tenderness. Bilateral tenderness with palpation to the paraspinous soft tissues of the thoracic back without muscle spasm. SKIN: Skin normal color, texture and turgor. Triage Information Reviewed: Yes Vital Signs: Initial Vital Signs Temp 97.3 F 01/23/19 15:04 Pulse 109 01/23/19 15:04 Resp 18 01/23/19 15:04 BP 112/78 01/23/19 15:04 Pulse Ox 98 01/23/19 15:04 Vital Signs Reviewed: Yes Back Pain Course/Dx - Course Course Of Treatment: 28 year old female presents with complaints of neck and back pain. States she has a history of chronic neck and back pain. Has been followed by the pain clinic in the past. Reports 2 days ago she fell while ascending some stairs, fell forward landing on her right knee and left elbow. She has healing abrasions to the elbow and knee but denies and pain. States her back pain has been worse since the fall. Worsens with any type or movement or touch. Her primary care provider has already made a referral to PT and is scheduling her for an MRI to evaluate her back and neck pain. Denies fever, chills, rash, chest pain, shortness of breath, abdominal pain, nausea, vomiting, dysuria, frequency, urgency, hematuria, weakness, numbness, or tingling of lower extremities, or loss of bowel or bladder control. Afebrile. Mildly tachycardic otherwise VSS. On exam was noted to have a supple neck with full ROM, no midline tenderness, tenderness with palpation to the right paraspinous soft tissues without spasm, no midline spinal deformity or tenderness, bilateral tenderness with palpation to the paraspinous soft tissues of the thoracic back without muscle spasm, and otherwise unremarkable exam. Patient is already taking a chronic anti-inflammatory as well as a benzodiazepine for her anxiety. She states she cannot use acetaminophen as it upsets her stomach. We discussed that this limits our options for additional pain medications however will try adding a low dose muscle relaxer to her regimen to see if this helps. We discussed that this also has the potential to interact with her other meds that can cause sedation but will start at a lower dose to minimize this risk. I have also encouraged her to follow through with the plan for PT referral and MRI started by her PCP and to add heat therapy to her current regimen. I have provider her with a prescription for cyclobenzaprine 5 mg every 8 hours as needed for severe pain or spasm. She is to follow up with her PCP in 3 days if symptoms do not improve. Anticipatory guidance and warning symptoms were reviewed with the patient. Verbalizes understanding and agrees with POC. - Differential Dx/Diagnosis Differential Diagnosis/HQI/PQRI: Arthritis, Herniated Disc, Neoplasm, Strain Provider Diagnosis: Back pain Discharge ED - Sign-Out/Discharge Documenting (check all that apply): Patient Departure All imaging exams completed and their final reports reviewed: No Studies - Discharge Plan Condition: Stable Disposition: HOME Prescriptions: Cyclobenzaprine (NF) [Cyclobenzaprine 5 MG (NF)] 5 mg PO TID PRN #21 tab PRN Reason: Spasms - Back Patient Education Materials: Back Pain (ED) Referrals: Marshall Simons MD [Primary Care Provider] - 3 Days Additional Instructions: Continue taking your medications including the nabumetone as directed. We will add a low dose muscle relaxant to see if this helps to better manage your pain. Take cyclobenzaprine (Flexeril) 5 mg 1 tab every 8 hours as needed for severe pain or spasm. Use a heating pad for 15-20 minutes at least 4 times a day to help with pain and relax the muscles. Follow up with your primary care in 3 days if symptoms are not improving. Seek immediate medical attention in the emergency room if you have worsening pain, develop severe abdominal pain, persistent vomiting, numbness, tingling, or weakness in your extremities, lose control of your bowel or bladder, or have any worsening of symptoms. - Billing Disposition and Condition Condition: STABLE Disposition: Home - Attestation Statements Provider Attestation: I was available for consult. This patient was seen by the FERNANDO. The patient was not presented to, seen by, or examined by me. -Hollie
== END 2019-01-23 15:57 | disposition home or self-care (01) ==
LOC: UCEAST 14:59
DX: M54.2 Cervicalgia (principal); M54.9 Dorsalgia, unspecified; G89.29 Other chronic pain; E11.9 Type 2 diabetes mellitus without complications; J45.909 Unspecified asthma, uncomplicated; F41.9 Anxiety disorder, unspecified; F32.9 Major depressive disorder, single episode, unspecified; F17.210 Nicotine dependence, cigarettes, uncomplicated; Z79.899 Other long term (current) drug therapy; Z88.8 Allergy status to other drugs, medicaments and biological substances; Z88.2 Allergy status to sulfonamides; Z91.02 Food additives allergy status
CPT/HCPCS: 99212; G0463

== ENCOUNTER 2019-02-05 08:13 | Emergency (ER) | payer BC, MEDICAID ==
--- OUTSIDE RECORDS SUMMARY | 2019-02-05 08:20 | XMS REPORT | Continuity of Care Document ---
:1990 External Reference #:[id number] Author Name JESSICA Miles Address [address] [place] [address] Care Team Providers Name Role Phone Marshall Simons MD - Family Medicine Care Team Information Rolling Attendant [facility] - Care Team Information Rolling Attendant [facility] Gonzalo Troy - Urology Care Team Information Rolling Attendant [phone] Emmanuel Camp MD - Orthopaedic Care Team Information Rolling Attendant Surgery of the Spine Problems Active Problems Provider Date Peptic reflux disease Marshall Simons M.D. Onset: 09/21/2007 Type II diabetes mellitus uncontrolled Marshall Simons M.D. Onset: 2007 Polycystic ovaries Marshall Simons M.D. Onset: 09/21/2007 Attention deficit hyperactivity disorder Marshall Simons M.D. Onset: 2008 Asthma without status asthmaticus Marshall Simons M.D. Onset: 08/02/2008 Acute sinusitis Marcia Castillo Onset: 04/01/2011 Candidiasis of skin and nails Marcia Castillo Onset: 04/01/2011 Obsessive-compulsive disorder Marshall Simons M.D. Onset: 06/25/2011 Schizophrenia Marshall Simons M.D. Onset: 06/25/2011 Morbid obesity Sarita Darden M.D. Onset: 07/14/2011 Acute upper respiratory infection Jose Brewer M.D. Onset: 10/11/2011 Diarrhea Jose Brewer M.D. Onset: 11/13/2011 Type 1 diabetes mellitus uncontrolled Marshall Simons M.D. Onset: 03/14/2015 Chronic cystitis Marshall Simons M.D. Onset: 05/26/2016 Type 2 diabetes mellitus with diabetic Marshall Simons M.D. Onset: 2016 autonomic (poly)neuropathy Attention deficit hyperactivity disorder, Marshall Simons M.D. 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 Onset: 10/01/2017 Knee pain Rolf Lam M.D. Onset: 10/01/2017 Social History Type Date Description Comments Sex Unknown Tobacco Use Start: Unknown Nonsmoker Smoking Status Reviewed: 02/01/19 Nonsmoker ETOH Use Denies alcohol use Tobacco Use Start: Unknown End: Unknown Patient is a former smoker Allergies, Adverse Reactions, Alerts Active Allergies Reaction Severity Comments Date Metformin Vomiting 06/03/2010 Askew Flavoring 11/01/2010 Bactrim face swollen / body itchy / tachycardia 07/21/2013 Cozaar vomiting 07/21/2013 Sulfa fever/hives 12/18/2014 Seasonal 07/11/2015 Environmental 07/11/2015 Medications Active Medications SIG Qnty Indications Ordering Date Provider Zofran 1 by mouth as 30tabs Marshall Simons, 02/01/2019 4mg Tablets needed for M.D. nausea/vomiting every 4 hours as needed up to 4x/ day. Ketorolac Start 1 tablet 14tabs G89.4 Marshall Simons, 02/01/2019 Tromethamine twice a day for 1 M.D. 10mg week, then switch Tablets to Diclofenac. Can not use this medication for care home use. Diclofenac Sodium Take 1 tablet twice 60tabs G89.4 Marshall Simons, 2018 75mg a day. Start when M.D. 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 on hold indefinately due to neuropathy that limits her use of the equipment Drospirenone-Ethinyl 1 by mouth every 84tabs N92.1 Millie 10/01/2017 Estradiol day Quang, WASTE DISPOSAL ATTENDANT 3-0.02mg Tablets Ibuprofen 30ml q 8 h for up 600ml M25.562 Aggie Gold, 09/17/2017 100mg/5ML to a week WASTE DISPOSAL ATTENDANT Suspension Meclizine HCL 1 by mouth three 90tabs J06.9 Aggie Gold, 12/03/2016 25mg times a day as WASTE DISPOSAL ATTENDANT Tablets needed dizziness J30.89 Pulmicort use in nebulizer bid 1box AAYUSH Abrams 01/04/2016 0.5mg/2ML prn Suspension Ventolin HFA 2 puffs qd-qid as 1units J45.998 AAYUSH Abrams 01/04/2016 needed 108(90Base) mcg/Act Aerosol Albuterol Sulfate inhale via nebulizer 1box Millie Pillaibhart, 01/04/2016 every 4 hrs as needed WASTE DISPOSAL ATTENDANT (2.5mg/3ML) 0.083% coughing Nebulizer Oxistat apply to affected 90gm [place] Quang, 11/29/2015 1% Cream area three times WASTE DISPOSAL ATTENDANT daily as needed Depend Underwear For use as directed. DX: 1box Marshall Simons, 2015 Wom Men Large incontinence due to M.D. Moderate Absorbency muscle relaxer medication. Misc Zolpidem Tartrate ER Unknown 12.5mg Tablets ER Clonidine HCL take 1 to 2 tablets Unknown 0.2mg by mouth at bedtime Tablets Abilify 1 by mouth every day Unknown 10mg Tablets Abilify Maintena monthly injection Unknown 400mg Prsy Ativan 1tab by mouth three Unknown 1mg Tablets times a day History Medications Ketorolac Start 1 tablet 60tabs G89.4 Marshall Simons, 02/01/2019 - Tromethamine twice a day. M.D. 02/01/2019 10mg Tablets Nabumetone take 1 tablet 60tabs G89.4 Marshall Simons, 01/20/2019 - 500mg twice a day as M.D. 02/01/2019 Tablets needed Physical Therapy treatment and Marshall Simons, 01/20/2019 - evaluation neck & M.D. 02/01/2019 low back pain Amoxicillin/Clavulan 10 ml bid x 10 200ml J20.9 Aggie Gold, 09/06/2018 - ate Potassium days WASTE DISPOSAL ATTENDANT 10/27/2018 400-57mg/5ML Suspension Rec Cheratussin ac 10ml every hs as 118ml J20.9 Aggie Gold, 09/06/2018 - needed, may repeat WASTE DISPOSAL ATTENDANT 10/27/2018 100-10mg/5ML Syrup once in 4 hours Note For Work Risa was seen J20.9 Aggie Gold, 09/06/2018 - by me today for WASTE DISPOSAL ATTENDANT 02/01/2019 continued illness and may not return to work until Thursday, 6\\26\\19 Mupirocin apply topically to 30gm L01.00 Millie 09/04/2018 - 2% Ointment affected area [facility], [facility] 02/01/2019 face,chest up to three times per day Medications Administered in Office Medication SIG Qnty Indications Ordering Provider Date TB Intradermal Test Marshall Simons M.D. 01/17/2009 Injection TB Intradermal Test Marshall Simons M.D. 10/22/2006 Injection Immunizations CPT Code Status Date Vaccine Lot # [id number] Given 10/28/2006 Tdap Tetanus, W Pertussis [id number] Given 10/22/2006 Meningococcal Conjugate Vaccine,Serogroups For [id number] Intramuscular Use 35520 Given 06/21/2000 Hepatitis B Immunization, -19 Years 44629 Given 02/19/2000 Hepatitis B Immunization, [place]-19 Years 72544 Given 01/17/2000 Hepatitis B Immunization, -19 Years 11629 Given 07/02/1993 IPV Inactive Poliovirus Vaccine 38767 Given 07/02/1993 MMR Virus Immunization 51624 Given 10/21/1989 IPV Inactive Poliovirus Vaccine 47848 Given 10/21/1989 DTP Immunization 03620 Given 07/21/1989 MMR Virus Immunization 29782 Given 1990 DTP Immunization 57441 Given 1988 IPV Inactive Poliovirus Vaccine 15112 Given 1990 DTP Immunization 49912 Given 1990 IPV Inactive Poliovirus Vaccine 90069 Given 1990 DTP Immunization 16106 Given 07/03/1983 DTP Immunization Vital Signs Date Vital Result Comment 02/01/2019 10:27am BP Systolic 100 mmHg BP Diastolic 72 mmHg Heart Rate 100 /min Body Temperature 97.7 F Respiratory Rate 12 /min 01/20/2019 6:48pm BP Systolic 110 mmHg BP Diastolic 80 mmHg Heart Rate 110 /min Body Temperature 97.3 F Respiratory Rate 16 /min Height 66 inches 5'6" Weight 225.00 lb BMI (Body Mass Index) 36.3 kg/m2 Results Test Date Facility Test Result H/L Range Note Xray 01/31/2019 [facility] [place] [facility] Cervical Spine W/O <pending> [address] [place] [address] [phone] MRI Lumbar Spine W/O Contrast <pending> Urine Culture And 11/22/2018 [facility] Urine Culture SEE RESULT 1, 2 Sensitivities BELOW Laboratory test 11/22/2018 [facility] Point of Care 141 mg/dL High 70-100 3 finding Glucose Poc Urinalysis 11/22/2018 [facility] Poc Glucose, 3+ Abnormal Negative Urine Poc Bilirubin, Urine 1+ Abnormal Negative Poc Ketone, Urine Trace Abnormal Negative Poc Specific Notrees, Urine >= 1.030 Normal 1.010-1.030 Poc Blood, Urine Negative Negative Poc pH, Urine 6.0 Normal 5-9 Poc Protein, Urine 1+ Abnormal Negative Poc Urobilinogen, Urine 0.2 Negative Poc Nitrite, Urine Positive Abnormal Negative Poc Leukocytes, Urine Negative Negative Poc Color, Urine Aisha Poc Clarity, Urine Clear 4 Bordetella PCR 09/04/2018 [facility] Bordetella Source Nasopharyngeal s <SEE NOTE > 5 Bordetella pertussis PCR Negative 6 Bordetella parapertussis PCR Negative 7 CBC Auto Diff 08/06/2018 [facility] White Blood Count 8.9 10^3/uL Normal 3.5- 10.8 Red Blood Count 4.58 10^6/uL Normal 3.70-4.87 Hemoglobin 12.8 g/dL Normal 12.0-16.0 Hematocrit 38 % Normal 35-47 Mean Corpuscular Volume 83 fL Normal 80-97 Mean Corpuscular Hemoglobin 28 pg Normal 27-31 Mean Corpuscular HGB Conc 34 g/dL Normal 31-36 Red Cell Distribution Width 12 % Normal 10.5-15 Platelet Count 302 10^3/uL Normal 150-450 Mean Platelet Volume 6.5 fL Low 7.4-10.4 Abs Neutrophils 7.1 10^3/uL Normal 1.5-7.7 Abs Lymphocytes 1.3 10^3/uL Normal 1.0-4.8 Abs Monocytes 0.4 10^3/uL Normal 0-0.8 Abs Eosinophils 0.1 10^3/uL Normal 0-0.6 Abs Basophils 0.1 10^3/uL Normal 0-0.2 Abs Nucleated RBC 0.0 10^3/uL Granulocyte % 79.5 % Lymphocyte % 14.3 % Monocyte % 4.5 % Eosinophil % 1.1 % Basophil % 0.6 % Nucleated Red Blood Cells % 0.1 Iron & Iron Binding Capacity 08/06/2018 [facility] Iron 44 g/dL Low 50-212 Unsaturated Iron Binding < 528 g/dL Total Iron Binding Capacity 543 g/dL High 250-450 Transferrin 388 mg/dL High 203-362 % Iron Saturation 8 % Low 15-55 Laboratory test finding 08/06/2018 [facility] Ferritin 57.7 ng/mL Normal 11-307 Vitamin B12 283 pg/mL Normal 180-914 8 1 [id number] 2 SEE RESULT BELOW Name: RISA LEGGETT : [address]: Dennise Russo MD Acct: [id number] Unit: [id number] AGE: 28 Location: [facility] Re11/22/18 SEX: F Status: DEP ER SPEC: [id number] MEG: 11/22/18-1525 [facility] DR: Abdirashid LOPEZ REQ: [id number] RECD: 11/23/18-1106 STATUS: ANDREW SMALLS DR: Marshall Russo MD _ SOURCE: URINE SPDESC: ORDERED: Urine Culture COMMENTS: [id number] QUERIES: Urine Source: Random Procedure Result Reported Site Urine Culture Final 11/24/18- 1050 ML No growth of clinically significant organisms * - Main Lab . END OF REPORT DEPARTMENT OF PATHOLOGY, [address] [place] [address] Yair Manriquez M.D. Director [facility] # [id number] 3 Refining Machine Operator: [id number] 4 Refining Machine Operator: [id number] 5 Nasopharyngeal swab 6 REFERENCE VALUE Not Applicable 7 REFERENCE VALUE Not Applicable ADDITIONAL INFORMATION This test was developed and its performance characteristics determined by [facility] in a manner consistent with CLIA requirements. This test has not been cleared or approved by the U.S. Food and Drug Administration. Test Performed by: [facility] [address] [address] 8 Normal Range 180 to 914 Indeterminate Range 145 to 180 Deficient Range <145 Procedures Date Code Description Status 09/04/2018 75838 Nebulizer Treatment Completed 11/18/2017 481657650 Diabetic Retinal Eye Exam Completed 05/21/2017 [id number] Diabetic Foot Exam Completed 11/13/2008 [id number] Colonoscopy Completed Medical Devices Description No Information Available Encounters Type Date Location Provider Dx Diagnosis Office Visit 01/20/2019 Main Office Marshall Simons G89.4 Chronic pain 7:10p M.D. syndrome Office Visit 10/27/2018 [facility] Office Marshall Simons M54.9 Dorsalgia, 11:30a M.D. unspecified Office Visit 09/10/2018 Main Office AAYUSH Abrams J20.9 Acute bronchitis, 11:00a unspecified Office Visit 09/06/2018 Main Office Aggie Rudolphr, [facility] J20.9 Acute bronchitis, 4:15p unspecified Office Visit 09/04/2018 [facility] Office Millie R05 Cough 10:30a Quang, [facility] J20.9 Acute bronchitis, unspecified R00.0 Tachycardia, unspecified L01.00 Impetigo, unspecified Assessments Date Code Description Provider 02/01/2019 G89.4 Chronic pain syndrome JESSICA Miles 01/20/2019 G89.4 Chronic pain syndrome Marshall Simons M.D. 10/27/2018 M54.9 Dorsalgia, unspecified Marshall Simons M.D. 09/10/2018 J20.9 Acute bronchitis, unspecified Aggie Asif, [facility] 09/06/2018 J20.9 Acute bronchitis, unspecified Aggie Asif, [facility] 09/04/2018 R05 Cough Millie Quang, [facility] 09/04/2018 J20.9 Acute bronchitis, unspecified Millie Quang, [facility] 09/04/2018 R00.0 Tachycardia, unspecified Millie Quang, [facility] 09/04/2018 L01.00 Impetigo, unspecified Millie Quang, [facility] Plan of Treatment Future Appointment(s):03/01/2019 10:30 am - JESSICA Miles at [facility] Djtadq6302/01/2019 - Ludy Luna, PAG89.4 Chronic pain syndromeNew Medication: Ketorolac Tromethamine 10 mg - Start 1 tablet twice a day for 1 week, then switch to Diclofenac. 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 Start when finished with KetorolacKetorolac Tromethamine 10 mg - Start 1 tablet twice a day.Comments: Switch to Toradol from Nabumetone for the next week. Then try Diclofenac for continuous use, twice aday. Continue Flexeril twice a day as needed. Heat to the sore areas. Continue to see physical therapy, doing gentle stretching and strengthening exercises at home. See Pain Clinic as scheduled on 02/09 Referral to Spinal surgeon, Dr. Rojas for options regarding the disc herniation. follow up in 1 month or sooner if neededAllComments:PCMHMedication Management Patient Understands medications he's taking? Yes Are there Barriers to Adherence? No Has the patient been asked about herbal supplements and therapies, and OTC meds? Yes Care Plan1. Patient has been queried about patient's goals/preferences and functional/lifestyle goals at relevant visits. Yes If relevant, describe: N/A2. Treatment goals as explained to the patient: above3. Are there barriers to meeting treatment goals? No If Yes , please describe:4. Self-Management goals as described to the patient: Yes As always, we strongly encourage a healthy diet and making physical activity a part of your every day life. If you have questions about how or where to start, please contact the office. Functional Status Description No Information Available Mental Status Description No Information Available Referrals Refer to Reason for Referral Status Appt Date Ashley Young MD disc herniation L5/ S1 jw Created [address] [place] [address] [phone] [facility] Booker[facility] evaluate and treat back pain jw Scheduled 11/2018 [address] [place] [address] [phone] [facility] Pain Clinic consult and treat-back pain jw Scheduled 11/26/[address] [place] [phone]
[2019-02-05 08:28] VITALS: BP 113/76
--- NOTE | 2019-02-05 08:55 | UC ---
Throat Pain/Nasal Robb HPI - HPI Summary HPI Summary: 28-year-old female presents with 3 day history of general malaise, sore throat, and a dry nonproductive cough. Associated with some mild nasal congestion and bilateral ear "itching". History of asthma but states she has not had use her rescue inhaler. Denies fever, chills, dysphagia, chest pain, shortness of breath , wheezing, abdominal pain, nausea, vomiting, or diarrhea. - History of Current Complaint Chief Complaint: UCGeneralIllness Stated Complaint: URI Time Seen by Provider: 02/05/19 08:47 Hx Obtained From: Patient Hx Last Menstrual Period: irreg. period - PCOS states Pain Intensity: 7 - Allergies/Home Medications Allergies/Adverse Reactions: Allergies Allergy/AdvReac Type Severity Reaction Status Date / Time losartan [From Cozaar] Allergy Vomiting Verified 02/05/19 08:19 metformin Allergy Rash Verified 02/05/19 08:19 pregabalin [From Lyrica] Allergy Vomiting Verified 02/05/19 08:19 Sulfa (Sulfonamide Allergy Vomiting Verified 02/05/19 08:19 Antibiotics) sulfamethoxazole Allergy Vomiting Verified 02/05/19 08:19 [From Bactrim] trimethoprim [From Bactrim] Allergy Vomiting Verified 02/05/19 08:19 young flavor AdvReac Vomiting Verified 02/05/19 08:19 Home Medications: Home Medications Ketorolac TAB * [Toradol TAB *] 10 mg PO BID 02/05/19 [History Confirmed ] PMH/Surg Hx/FS Hx/Imm Hx Endocrine History: Diabetes Psychological History: Anxiety, Depression, Schizophrenia Other History Of: Negative For: Anticoagulant Therapy - Surgical History Surgical History: Yes Surgery Procedure, Year, and Place: foot surgeries in 2nd grade - Family History Known Family History: Positive: Hypertension, Diabetes Family History: FHx of schizophrenia. FHx of mood disorders. FHx of bipolar disorders. Fhx of anxiety disorders. FHx of Depression. Fhx of alcohol abuse - Social History Occupation: Unemployed Lives: With Family Alcohol Use: None Alcohol Amount: 2 yearly Substance Use Type: None Smoking Status (MU): Current Some Day Smoker Type: Cigarettes Amount Used/How Often: 5 cigarettes day Have You Smoked in the Last Year: Yes Household Exposure Type: Cigarettes - Immunization History Most Recent Influenza Vaccination: none Most Recent Pneumonia Vaccination: none Review of Systems All Other Systems Reviewed And Are Negative: Yes Physical Exam - Summary Physical Exam Summary: GENERAL APPEARANCE: Alert and cooperative obese female who appears to be in no acute distress. EYES: Conjunctiva clear. No drainage. EARS: External auditory canals and tympanic membranes clear, hearing grossly intact. NOSE: Mild nasal congestion. No nasal discharge. THROAT: Pharyngeal erythema. 2+ tonsils without exudate or lesions. Uvula midline. NECK: Neck supple, non-tender without lymphadenopathy. CARDIAC: Normal S1 and S2. No S3, S4 or murmurs. Tachycardic Rhythm is regular. There is no peripheral edema, cyanosis or pallor. Extremities are warm and well perfused. Capillary refill is less than 2 seconds. Peripheral pulses intact. LUNGS: Clear to auscultation without rales, rhonchi, wheezing or diminished breath sounds. Dry, non-productive cough. ABDOMEN: Positive bowel sounds. Soft, nondistended, nontender. No guarding or rebound. No masses or hepatosplenomegally. MUSKULOSKELETAL: ROM intact to all extremities. No joint erythema or tenderness. Normal muscular development. Normal gait. SKIN: Skin normal color, texture and turgor with no lesions or eruptions. Triage Information Reviewed: Yes Vital Signs: Initial Vital Signs Temp 97.3 F 02/05/19 08:23 Pulse 118 02/05/19 08:23 Resp 18 02/05/19 08:23 BP 113/76 02/05/19 08:23 Pulse Ox 97 02/05/19 08:23 Vital Signs Reviewed: Yes Throat Pain/Nasal Course/Dx - Course Course Of Treatment: 28-year-old female presents with 3 day history of general malaise, sore throat, and a dry nonproductive cough. Associated with some mild nasal congestion and bilateral ear "itching". History of asthma but states she has not had use her rescue inhaler. Denies fever, chills, dysphagia, chest pain, shortness of breath , wheezing, abdominal pain, nausea, vomiting, or diarrhea. Afebrile. Tachycardic otherwise vital signs stable. Exam revealed mild nasal congestion, pharyngeal erythema, 2+ tonsils without exudate, no cervical lymphadenopathy, clear bilateral breath sounds, dry nonproductive cough, and otherwise unremarkable exam. Rapid strep test was negative. Results were reviewed with the patient. Recommending symptomatic treatment for a viral upper respiratory infection including fluticasone nasal spray 2 sprays each nostril once daily. Patient is to follow-up with her primary care provider in 3-5 days if symptoms are not improving. Anticipatory guidance and warning symptoms reviewed with the patient. Verbalizes understanding and agrees with plan of care. - Differential Dx/Diagnosis Differential Diagnosis/HQI/PQRI: Influenza, Mononucleosis, Peritonsillar Abscess , Pharyngitis, Sinusitis, Tonsillitis, URI Provider Diagnosis: Viral URI with cough Discharge ED - Sign-Out/Discharge Documenting (check all that apply): Patient Departure All imaging exams completed and their final reports reviewed: No Studies - Discharge Plan Condition: Stable Disposition: HOME Prescriptions: Fluticasone NASAL SPRAY 50MCG* [Flonase NASAL SPRAY 50MCG*] 2 spray BOTH NARES DAILY #1 btl Patient Education Materials: Upper Respiratory Infection (ED) Referrals: Marshall Simons MD [Primary Care Provider] - 3 Days (If no improvement in symptoms.) Additional Instructions: The rapid strep test performed in the clinic today was negative. Your history and exam are consistent with a viral upper respiratory infection. Viral infections do not respond to antibiotics and are limited to the treatment of symptoms. Viral infections typically run their course in 7-10 days. Drink plenty of fluids to avoid dehydration especially if you are running any fever. Use a saline rinse kit such as Neti Pot or NeilMed at least twice a day to help thin secretions and promote drainage of the sinuses. Use fluticasone (Flonase) nasal spray 2 sprays each nostril once daily. Continue to use the over the counter Delsym according to directions as needed for cough. Use your albuterol inhaler as directed for any shortness or breath or wheezing. Take over the counter acetaminophen (Tylenol) or ibuprofen (Advil, Motrin) according to directions as needed for pain or fever. Use salt water gargles several times a day if you have a sore throat. You may also use Chloraseptic spray or Cepacol lonzenges according to directions which contain a numbing medication and can provide some temporary relief from your sore throat. Follow up with your primary care provider in 3-5 days if symptoms persist. Seek immediate medical attention in the emergency room if you have fever greater than 100.5 F despite taking acetaminophen or ibuprofen, have chest pain , difficulty breathing, are unable to swallow, or have any worsening of symptoms. - Billing Disposition and Condition Condition: STABLE Disposition: Home
== END 2019-02-05 09:30 | disposition home or self-care (01) ==
LOC: UCEAST 08:13
DX: J06.9 Acute upper respiratory infection, unspecified (principal); R05 Cough; E11.9 Type 2 diabetes mellitus without complications; F20.9 Schizophrenia, unspecified; F17.210 Nicotine dependence, cigarettes, uncomplicated; Z88.2 Allergy status to sulfonamides; Z91.018 Allergy to other foods; Z88.8 Allergy status to other drugs, medicaments and biological substances
CPT/HCPCS: 87651; 99202; G0463

== ENCOUNTER 2022-10-30 16:56 | Inpatient (IN) ==
[2022-10-30] MEDS ORDERED: LACTATED RINGERS IV ONE (18:10)
[2022-10-30 18:29] LABS: ABS Lymphocytes 1.1 10^3/uL (1.0-4.8); ABS Neutrophils 9.8 10^3/uL (1.5-7.6); ABS Nucleated RBC 0.01 10^3/ul; Eosinophil % 0.1 %; Hematocrit 41.9 % (38-53); Hemoglobin 13.9 g/dL (13.2-16.3); Lymphocyte % 8.9 %; Mean Corpuscular Hemoglobin 26.3 pg (27-33); Mean Corpuscular Hgb Conc 33.3 g/dL (31-36); Mean Corpuscular Volume 79.1 fL (80-97); Mean Platelet Volume 7.2 fL (7.5-11.2); Nucleated Red Blood Cells % 0.1 /100 WBC (0.0-0.4); Platelet Count 266 10^3/uL (150-450); Red Cell Distribution Width 12.8 % (12-17); White Blood Count 11.9 10^3/uL (3.6-10.2)
[2022-10-30 18:37] LABS: Activated Partial Thrombo Time 29.7 seconds (26.0-38.0); INR 1.38 (0.88-1.18)
[2022-10-30 18:47] LABS: Albumin 4.8 g/dL (3.2-5.2); Albumin/Globulin Ratio 1.8 (1-3); C Reactive Protein 190.66 mg/L (<8.01); Calcium 9.8 mg/dL (8.6-10.3); Creatinine, Serum 0.73 mg/dL (0.67-1.17); Globulin 2.7 g/dL (2-4); Potassium 3.8 mmol/L (3.5-5.0); Total Bilirubin 3.2 mg/dL (0.2-1.0); Total Protein 7.5 g/dL (6.4-8.9); eGFR CKD-EPI 122.4 (>60)
[2022-10-30 19:37] LABS: Urine Appearance Cloudy; Urine Bilirubin Negative (Negative); Urine Blood 2+ (Negative); Urine Color Amber; Urine Glucose 3+(>=500 mg/dL) (Negative); Urine Ketones 1+ (Negative); Urine Nitrite Negative (Negative); Urine Protein 1+(30 mg/dL) (Negative); Urine Specific Gravity 1.027 (1.002-1.030); Urine Urobilinogen Negative (Negative)
[2022-10-30 19:46] LABS: Urine Bacteria Absent (Absent); Urine Red Blood Cell 2+(6-10/hpf) (Absent); Urine Squamous Epithelial Cell Present (Absent); Urine White Blood Cell 2+(11-20/hpf) (Absent)
[2022-10-30 19:53] LABS: High Sensitivity Troponin 1 Hr 3 pg/mL (<20)
[2022-10-30] MEDS ORDERED: Iodixanol (CONTRAST) 320 MG/ML 100 ML SDV IV ONE (19:59)
[2022-10-30] MEDS ORDERED: Acetaminophen IV 1 GM/100ML 1,000 MG/100 ML BAG IV ONE (20:54)
[2022-10-30] MEDS ORDERED: Vancomycin 1,500 MG in NS 0.9% 250 ml 250 ML IVPB ONE (21:46)
[2022-10-30] MEDS ORDERED: Piperacillin/Tazobac 3.375 BAG 3.375 GM/100 ML BAG IV ONE (21:46)
[2022-10-30] MEDS ORDERED: Dextrose 50% Syringe 50 ml 25 GM/50 ML SYRINGE IV PUSH PRN (22:25)
[2022-10-30] MEDS ORDERED: Acetaminophen IV 1 GM/100ML 1,000 MG/100 ML BAG IV SCH (22:30)
[2022-10-30 23:02] LABS: Direct Bilirubin 0.6 mg/dL (0.03-0.18)
[2022-10-30] MEDS ORDERED: Senna TAB 8.6 mg TAB PO PRN (23:46)
[2022-10-30] MEDS ORDERED: Al Hydrox/Mg Hydrox/Simet LIQ 30 ML UDC PO PRN (23:46)
[2022-10-31] MEDS: Ondansetron 4 mg VIAL 2 MG/ML 2 ml VIAL IV PRN ×3 (00:21→17:22)
[2022-10-31] MEDS ORDERED: cefTRIAXone 1 gm/50 mL D5W 1 GM/50 ML BAG IV SCH (01:00)
[2022-10-31] MEDS ORDERED: Metoprolol Tartrate 5 mg VIAL 5 ml VIAL (1 mg/ml) IV PRN (01:08)
[2022-10-31] MEDS ORDERED: Vancomycin per Pharmacy 1 EA NOTE FOLLOW UP SCH (02:00)
[2022-10-31] MEDS: Lactated Ringers 1000 ml BAG 1,000 ML IV SCH ×2 (03:29→12:54)
[2022-10-31] MEDS: Magnesium Hydroxide LIQ 30 ML UDC PO SCH ×3 (03:40→22:05)
[2022-10-31 04:13] LABS: Magnesium 1.6 mg/dL (1.9-2.7)
[2022-10-31] MEDS: metroNIDAZOLE IV 500 MG/100ML 500 MG/100 ML BAG IVPB SCH ×4 (05:21→23:11)
[2022-10-31] MEDS ORDERED: Magnesium Sulfate IV 3 GM in NS 0.9% 100 ml BAG 100 ML IVPB ONE (05:48)
[2022-10-31] MEDS ORDERED: KCL 20 MEQ/100 ML IVPREMIX 20 MEQ/100 ML BAG IV ONE ×2 (05:48→08:00)
[2022-10-31 06:03] LABS: ABS Lymphocytes 0.9 10^3/uL (1.0-4.8); ABS Monocytes 0.9 10^3/uL (0.0-1.1); ABS Neutrophils 5.7 10^3/uL (1.5-7.6); Eosinophil % 0.5 %; Hematocrit 35.4 % (38-53); Hemoglobin 11.9 g/dL (13.2-16.3); Lymphocyte % 11.5 %; Mean Corpuscular Hemoglobin 26.6 pg (27-33); Mean Corpuscular Hgb Conc 33.6 g/dL (31-36); Mean Corpuscular Volume 79.1 fL (80-97); Mean Platelet Volume 7.4 fL (7.5-11.2); Platelet Count 201 10^3/uL (150-450); Red Blood Count 4.47 10^6/uL (4.06-5.63); Red Cell Distribution Width 12.8 % (12-17); White Blood Count 7.5 10^3/uL (3.6-10.2)
[2022-10-31 06:25] LABS: Albumin 3.6 g/dL (3.2-5.2); Albumin/Globulin Ratio 1.8 (1-3); Calcium 8.5 mg/dL (8.6-10.3); Creatinine, Serum 0.73 mg/dL (0.67-1.17); Potassium 3.3 mmol/L (3.5-5.0); Total Bilirubin 2.1 mg/dL (0.2-1.0); Total Protein 5.6 g/dL (6.4-8.9); eGFR CKD-EPI 122.4 (>60)
[2022-10-31] MEDS ORDERED: Potassium Chloride LIQUID 20 MEQ/15 ML LIQUID PO ONE (07:06)
[2022-10-31] MEDS ORDERED: Vancomycin 1,250 MG in NS 0.9% 250 ml 250 ML IVPB SCH (08:00)
[2022-10-31] MEDS ORDERED: Polyethylene Glycol 3350 17 GM PACKET PO SCH (09:00)
[2022-10-31] MEDS ORDERED: Buprenorphine 5 MCG PATCH(NF) 5 MCG/HR PATCH (5 MG TOTAL) TRANSDERM SCH (09:00)
[2022-10-31] MEDS: Buprenorph Patch Check Q Shift 1 NOTE MISC FOLLOW UP SCH ×2 (09:13→17:17)
[2022-10-31] MEDS: Acetaminophen IV 1 GM/100ML 1,000 MG/100 ML BAG IV PRN ×2 (10:38→19:35)
[2022-10-31] MEDS ORDERED: Azithromycin 500 mg/250 ml NS 500 MG/250 ML BAG IVPB SCH ×2 (14:00)
[2022-10-31] MEDS: CMC:TESTOSTERONE GEL 25 MG (NF) IN 2.5 GM SIZE PACKET TOPICAL SCH (14:45)
[2022-10-31] MEDS: Vancomycin 1,250 MG in NS 0.9% 250 ml 250 ML IVPB SCH (20:37)
[2022-11-01] MEDS: Buprenorph Patch Check Q Shift 1 NOTE MISC FOLLOW UP SCH ×3 (00:32→18:57)
[2022-11-01] MEDS: cefTRIAXone 1 gm/50 mL D5W 1 GM/50 ML BAG IV SCH (00:33)
[2022-11-01] MEDS ORDERED: Magnesium Hydroxide LIQ 30 ML UDC PO PRN (02:21)
[2022-11-01] MEDS ORDERED: Polyethylene Glycol 3350 17 GM PACKET PO PRN (02:23)
[2022-11-01] MEDS: Vancomycin 1,250 MG in NS 0.9% 250 ml 250 ML IVPB SCH ×2 (03:50→12:05)
[2022-11-01 06:25] LABS: ABS Eosinophils 0.1 10^3/uL (0.0-0.5); ABS Lymphocytes 0.8 10^3/uL (1.0-4.8); ABS Monocytes 0.6 10^3/uL (0.0-1.1); ABS Neutrophils 5.3 10^3/uL (1.5-7.6); ABS Nucleated RBC 0.01 10^3/ul; Hemoglobin 10.8 g/dL (13.2-16.3); Lymphocyte % 12.1 %; Mean Corpuscular Hemoglobin 26.6 pg (27-33); Mean Corpuscular Hgb Conc 33.8 g/dL (31-36); Mean Corpuscular Volume 78.7 fL (80-97); Mean Platelet Volume 7.4 fL (7.5-11.2); Nucleated Red Blood Cells % 0.1 /100 WBC (0.0-0.4); Platelet Count 208 10^3/uL (150-450); Red Blood Count 4.06 10^6/uL (4.06-5.63); Red Cell Distribution Width 12.5 % (12-17); White Blood Count 6.8 10^3/uL (3.6-10.2)
[2022-11-01 06:40] LABS: Calcium 7.9 mg/dL (8.6-10.3); Creatinine, Serum 0.63 mg/dL (0.67-1.17); Magnesium 1.8 mg/dL (1.9-2.7); Phosphorus 2.6 mg/dL (2.5-5.0); Potassium 3.8 mmol/L (3.5-5.0)
[2022-11-01] MEDS ORDERED: Magnesium Sulfate 2 gm BAG 2 GM/50 ML BAG IVPB ONE (07:21)
[2022-11-01] MEDS: metroNIDAZOLE IV 500 MG/100ML 500 MG/100 ML BAG IVPB SCH ×3 (07:55→23:26)
[2022-11-01] MEDS ORDERED: Vancomycin Trough Check NOTE FOLLOW UP ONE (11:00)
[2022-11-01] MEDS: CMC:TESTOSTERONE GEL 25 MG (NF) IN 2.5 GM SIZE PACKET TOPICAL SCH (11:37)
[2022-11-01] MEDS: Vancomycin 1,500 MG in NS 0.9% 250 ml 250 ML IVPB SCH ×2 (12:32→21:19)
[2022-11-01] MEDS: NS 0.9% 1000 ml BAG 1,000 ML IV SCH (15:22)
[2022-11-01] MEDS: Ondansetron 4 mg VIAL 2 MG/ML 2 ml VIAL IV PRN (17:50)
[2022-11-01] MEDS: Enoxaparin 40 MG/0.4 ML SYR SUBCUT SCH (17:51)
[2022-11-01] MEDS: Albuterol 2.5mg/3 ml (0.083%) NEB.SOLN INH PRN (19:55)
[2022-11-01] MEDS: Acetaminophen IV 1 GM/100ML 1,000 MG/100 ML BAG IV PRN (23:04)
[2022-11-02] MEDS: cefTRIAXone 1 gm/50 mL D5W 1 GM/50 ML BAG IV SCH (00:39)
[2022-11-02] MEDS: NS 0.9% 1000 ml BAG 1,000 ML IV SCH (04:20)
[2022-11-02] MEDS: Vancomycin 1,500 MG in NS 0.9% 250 ml 250 ML IVPB SCH ×3 (04:26→22:05)
[2022-11-02 06:13] LABS: ABS Eosinophils 0.1 10^3/uL (0.0-0.5); ABS Lymphocytes 0.9 10^3/uL (1.0-4.8); ABS Monocytes 0.5 10^3/uL (0.0-1.1); ABS Neutrophils 3.3 10^3/uL (1.5-7.6); Eosinophil % 2.8 %; Hematocrit 30.3 % (38-53); Hemoglobin 10.2 g/dL (13.2-16.3); Lymphocyte % 18.2 %; Mean Corpuscular Hemoglobin 26.7 pg (27-33); Mean Corpuscular Hgb Conc 33.8 g/dL (31-36); Mean Corpuscular Volume 79.1 fL (80-97); Mean Platelet Volume 7.2 fL (7.5-11.2); Nucleated Red Blood Cells % 0.1 /100 WBC (0.0-0.4); Platelet Count 191 10^3/uL (150-450); Red Blood Count 3.83 10^6/uL (4.06-5.63); Red Cell Distribution Width 12.5 % (12-17); White Blood Count 4.8 10^3/uL (3.6-10.2)
[2022-11-02 06:29] LABS: Calcium 7.8 mg/dL (8.6-10.3); Creatinine, Serum 0.66 mg/dL (0.67-1.17); Magnesium 1.9 mg/dL (1.9-2.7); Potassium 3.5 mmol/L (3.5-5.0); eGFR CKD-EPI 126.2 (>60)
[2022-11-02] MEDS: Buprenorph Patch Check Q Shift 1 NOTE MISC FOLLOW UP SCH ×2 (06:48→19:07)
[2022-11-02] MEDS: metroNIDAZOLE IV 500 MG/100ML 500 MG/100 ML BAG IVPB SCH ×2 (07:15→16:41)
[2022-11-02] MEDS: Ondansetron 4 mg VIAL 2 MG/ML 2 ml VIAL IV PRN (08:58)
[2022-11-02] MEDS: Albuterol 2.5mg/3 ml (0.083%) NEB.SOLN INH PRN (08:58)
[2022-11-02] MEDS ORDERED: Magnesium Sulfate IV 1GM/100ML 1 GM/100 ML BAG IV ONE (10:26)
[2022-11-02] MEDS ORDERED: Albuterol HFA INHALER 8 gm MDI INH PRN (10:31)
[2022-11-02] MEDS ORDERED: Benzocaine/Menthol LOZ PO PRN (10:33)
[2022-11-02] MEDS: Cefepime 2 GM in Dextrose 2 GM/50 ML BAG IV SCH (11:59)
[2022-11-02] MEDS: Mometasone/Formoter 100/5 MDI INH SCH ×2 (12:01→19:13)
[2022-11-02] MEDS ORDERED: Vancomycin Trough Check NOTE FOLLOW UP ONE (12:30)
[2022-11-02] MEDS: CMC:TESTOSTERONE GEL 25 MG (NF) IN 2.5 GM SIZE PACKET TOPICAL SCH (14:28)
[2022-11-02] MEDS: Enoxaparin 40 MG/0.4 ML SYR SUBCUT SCH (17:13)
[2022-11-03] MEDS: metroNIDAZOLE IV 500 MG/100ML 500 MG/100 ML BAG IVPB SCH (01:11)
[2022-11-03] MEDS: Cefepime 2 GM in Dextrose 2 GM/50 ML BAG IV SCH (01:11)
[2022-11-03 05:46] LABS: ABS Eosinophils 0.1 10^3/uL (0.0-0.5); ABS Lymphocytes 0.9 10^3/uL (1.0-4.8); ABS Monocytes 0.4 10^3/uL (0.0-1.1); ABS Neutrophils 2.2 10^3/uL (1.5-7.6); ABS Nucleated RBC 0.01 10^3/ul; Hematocrit 29.4 % (38-53); Lymphocyte % 25.3 %; Mean Corpuscular Hemoglobin 26.9 pg (27-33); Mean Corpuscular Hgb Conc 34.2 g/dL (31-36); Mean Corpuscular Volume 78.8 fL (80-97); Nucleated Red Blood Cells % 0.2 /100 WBC (0.0-0.4); Platelet Count 206 10^3/uL (150-450); Red Blood Count 3.73 10^6/uL (4.06-5.63); Red Cell Distribution Width 12.9 % (12-17); White Blood Count 3.7 10^3/uL (3.6-10.2)
[2022-11-03 06:05] LABS: Calcium 8.3 mg/dL (8.6-10.3); Creatinine, Serum 0.6 mg/dL (0.67-1.17); Potassium 3.4 mmol/L (3.5-5.0); eGFR CKD-EPI 129.9 (>60)
[2022-11-03] MEDS: Buprenorph Patch Check Q Shift 1 NOTE MISC FOLLOW UP SCH (07:00)
[2022-11-03] MEDS: Mometasone/Formoter 100/5 MDI INH SCH (07:59)
[2022-11-03] MEDS ORDERED: Potassium Chloride LIQUID 20 MEQ/15 ML LIQUID PO ONE (09:15)
[2022-11-03] MEDS ORDERED: LORazepam 2 mg VIAL 1 ml ONE (10:34)
[2022-11-03] MEDS: CMC:TESTOSTERONE GEL 25 MG (NF) IN 2.5 GM SIZE PACKET TOPICAL SCH (13:16)
[2022-11-03 14:06] LABS: Anaplasma phagocytophilum Negative (Negative); B. miyamotoi PCR, B Negative (Negative); Babesia divergens/MO-1 Negative (Negative); Babesia ducani Negative (Negative); Ehrlichia chaffeensis Negative (Negative); Ehrlichia ewingii/canis Negative (Negative); Ehrlichia muris eauclairensis Negative (Negative)
[2022-11-03 14:33] VITALS: BP 131/84
[2022-11-05] MEDS ORDERED: Vancomycin Trough Check NOTE FOLLOW UP ONE (12:30)
== END 2022-11-03 15:45 | disposition home or self-care (01) | DRG 871 ==
LOC: EDSEX → ED 16:56 → EDHOLD 16:56 → SUATTDRO 22:20 → MED 10-31 02:35 → SUATTDRO 10-31 11:35
PROVIDERS: ADMIT Internal Medicine; ATTEND Internal Medicine